=== PATIENT | female | born 1930 | race Caucasian/White ===

== ENCOUNTER 2017-03-11 18:01 | Inpatient (IN) | payer OTHER, MEDICARE ==
[~2017-03-11] VITALS: Ht 152.4 cm; Wt 60.3 kg
[~2017-03-11 18:01] MED LIST: AMLODIPINE-BEN1 EAC3 PO; ASPIRIN EC81 M1 PO; CRESTOR20 M2 PO; FERROUS SULFAT325 M3 PO; GEMFIBROZIL600 M1 PO; LEXAPRO5 M1 PO; LORAZEPAM0.5 M1 PO; MACROBID 100 M100 MG PO; MECLIZINE HCL25 MG PO; METFORMIN HCL1000 M1 PO; MOBIC7.5 M1 PO; PREDNISONE20 M1 PO; TYLENOL WITH C1 EACH PO; VITAMIN D1000 UNIT PO; ZOFRAN4 M2 PO
--- NOTE | 2017-03-11 18:07 | NUR ---
BIBA FROM HOME WITH INCREASING FALLS FROM HER RIGHT LEG GOING OUT ON HER. HAD X-RAYS DONE HERE YESTERDAY FOR SAME. PCP & NEURO IS AWARE AND PATIENT HAS BEEN TOLD THERE IS NOTHING THEY CAN DO FOR HER AT THIS TIME. C/O HAVING THE PINS/NEEDLES SENSATION IN HANDS AND FEET.
--- NOTE | 2017-03-11 18:10 | ED AMS/SEIZURE/WEAK/DIZZY ---
History of Present Illness General Chief Complaint: Fall Stated Complaint: BIBA FALLS Source: patient, family, old records Exam Limitations: no limitations Vital Signs & Intake/Output Vital Signs & Intake/Output Vital Signs Date Time Temp Pulse Resp B/P B/P Pulse O2 O2 Flow FiO2 Mean Ox Delivery Rate 03/12 0230 98.0 75 20 130/60 96 03/12 0049 97.2 69 20 136/63 96 Room Air 03/11 2225 88 18 140/64 96 Room Air 03/11 1809 98 Room Air 03/11 1808 98.2 106 20 140/65 98 Room Air ED Intake and Output 03/12 0000 03/11 1200 Intake Total Output Total Balance Patient 133 lb Weight Weight Reported by Patient Measurement Method Allergies Coded Allergies: No Known Allergies (06/29/16) Triage Note: BIBBoy FROM HOME WITH INCREASING FALLS FROM HER RIGHT LEG GOING OUT ON HER. HAD X-RAYS DONE HERE YESTERDAY FOR SAME. PCP & NEURO IS AWARE AND PATIENT HAS BEEN TOLD THERE IS NOTHING THEY CAN DO FOR HER AT THIS TIME. C/O HAVING THE PINS/NEEDLES SENSATION IN HANDS AND FEET. Triage Nurses Notes Reviewed? yes Onset: Gradual Duration: getting worse Timing: recent history Severity: severe Severity Numbers: 7 HPI: Patient is a 86-year-old female with past medical history diabetes mellitus type 2, hypertension, hyperlipidemia who presents emergency room with concerns of worsening generalized bilateral lower extremity weakness or patient was evaluated by me at [facility] emergency room 1 week ago for concerns of similar lower extremity weakness dizziness and room spinning sensation where patient had unremarkable acute findings and blood work patient had normal steady gait on discharge however since her discharge where patient lives in a private residence at home that she and family are very concerned with patient showing significant decline earner ambulatory status where she in the past 2 days has had nontraumatic falls and today she was unable to get out of bed due to generalized weakness which she was brought in by ambulance. Patient also was evaluated this week by primary care doctor in which x-ray of chest was unremarkable along with urine analysis and culture. Patient is still complaining of increased frequency of urination. Patient however denies any fever chills headache neck pain back pain abdominal pain chest pain shortness of breath cough blurred vision Patient does complain of intermittent bilateral lower extremity paresthesia but denies any lower extremity pain Denies any dysuria hematuria or vaginal bleeding or discharge. Patient denies any pain after the fallS It is also noted through old records the patient about 1 year ago received imaging studies after a fall and had MRI findings concerning of nondisplaced trabecular fracture of the left hip (BJORN GARCIA) Reconcile Medications Acetaminophen With Codeine (Acetaminophen-Cod #3 Tablet) 300 MG-30 MG TABLET 1 TAB PO AD PRN PAIN (Reported) Amlodipine Besylate/Benazepril (Amlodipine-Benazepril 5-10 MG) 1 EACH CAPSULE 1 CAP PO DAILY BP (Reported) Aspirin (Ecotrin*) 81 MG TABLET.DR 1 TAB PO DAILY HEART HEALTH (Reported) Cholecalciferol (Vitamin D3) (Vitamin D) 1,000 UNIT TABLET 3 CAP PO DAILY SUPPLEMENT (Reported) Escitalopram Oxalate (Lexapro) 5 MG TABLET 1 TAB PO DAILY MENTAL HEALTH ( Reported) Gemfibrozil 600 MG TABLET 1 TAB PO BID CHOLESTEROL (Reported) Ibuprofen (Advil) 200 MG TABLET 2 TAB PO PRN PAIN (Reported) Lorazepam 0.5 MG TABLET 0.5 TAB PO QPM SLEEP (Reported) Metformin HCl 1,000 MG TABLET 1 TAB PO DAILY DIABETES (Reported) Rosuvastatin Calcium (Crestor) 20 MG TABLET 1 TAB PO DAILY CHOLESTEROL ( Reported) (AV MINAYA,RICO Gandhi) Past History Travel History Traveled to [place] past 21 day No Medical History Any Pertinent Medical History? 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 No (BJORN GARCIA) Review of Systems Review of Systems Constitutional: Reports: weakness. EENTM: Reports: no symptoms. Respiratory: Reports: no symptoms. Cardiovascular: Reports: no symptoms. GI: Reports: no symptoms. Genitourinary: Reports: no symptoms. Musculoskeletal: Reports: no symptoms. Skin: Reports: no symptoms. Neurological/Psychological: Reports: see HPI, paresthesia. Hematologic/Endocrine: Reports: no symptoms. Immunologic/Allergic: Reports: no symptoms. All Other Systems: Reviewed and Negative (BJORN GARCIA) Physical Exam Physical Exam General Appearance: no apparent distress, alert, comfortable Comments: Well-developed well-nourished person in no acute distress HEENT: Normal EENT exam, extraocular motion intact, no nystagmus. Pupils equally round and reactive to light and accommodation. Nose is atraumatic. External auditory canal and Tympanic membranes clear. Pharynx normal. No swelling or edema. Neck: Supple, no lymphadenopathy, normal range of motion without pain or tenderness Back: Nontender, no CVA tenderness. Cardiovascular: Regular rate and rhythms no murmurs rubs or gallops, normal JVP Respiratory: Chest nontender. No respiratory distress.breath sounds clear to auscultation bilaterally Abdomen: Soft, nontender nondistended, no appreciable organomegaly. Normal bowel sounds. No ascites Extremity: No edema, no calf tenderness to palpation, normal and equal pulses. Bilateral lower extremity dermatomes myotomes DTRs intact Neuro: Alert oriented x3, motor sensory normal, cranial nerves II through XII grossly intact. Skin: No appreciable rash on exposed skin, skin is warm and dry. Psych: Mood and affect is normal, memory and judgment is normal. Core Measures ACS in differential dx? No CVA/TIA Diagnosis: No Severe Sepsis Present: No Septic Shock Present: No (BJORN GARCIA) Progress Differential Diagnosis: arrythmia, anemia, benign positional vertigo, CVA/stroke , dehydration, drug intoxication, encephalitis, electrolyte imbalance, GI bleed, hypoglycemia, hypoxia, intracranial Hem., intracranial mass/tumor, labrynthitis, meningitis, Meniere's disease, migraine JOHNSON, multiple sclerosis, pneumonia, postural hypotension, presyncope, post-traumatic vertigo, sepsis, seizure disorder, subarachnoid Hem., UTI/pyelo, vertebrobasilar insuff Plan of Care: Orders Procedure Date/time Status BASIC ELECTROLYTES PLUS BUN&CR 03/13 0600 Active Consistent Carbohydrate 2 03/12 B Active Vital Signs 03/12 140 Active Teach/Educate 03/12 140 Active Pain Treatment and Response 03/12 140 Active Nutritional Intake, Monitor 03/12 140 Active Isolation 03/12 140 Active Intake & Output 03/12 140 Active Patient Care Conference 03/12 140 Active Activity/Ambulation 03/12 140 Active Code Status 03/12 0103 Active Pathway - chart 03/12 0101 Active PT Evaluate & Treat 03/12 0044 Active Pathway - chart 03/12 0044 Active House Staff 03/12 0044 Active Lab Add-on Test 03/12 UNK Active VTE Mechanical Prophylaxis 03/12 UNK Active Vital Signs 03/12 UNK Complete MISTAKE 03/12 UNK Active Nursing Misc 03/12 UNK Active FingerStick- Glucose 03/12 UNK Active Patient Data 03/11 2332 Active ED Holding Orders 03/11 232 Active Admit to inpatient 03/11 232 Active Vital Signs 03/11 232 Active Code Status 03/11 232 Complete Intake & Output 03/11 2013 Active VITAMIN B12 03/11 2010 Complete COMPREHENSIVE METABOLIC PANEL 03/11 1956 Complete CBC WITHOUT DIFFERENTIAL 03/11 1956 Complete EKG 03/11 1956 Active NIH Stroke Scale 03/11 181 Active Current Medications Sig/Tyrese Start time Last Medication Dose Stop Time Status Admin Gabapentin 100 MG AT BEDTIME 03/12 2200 AC (Neurontin) Lorazepam 0.25 MG QPM 03/12 2200 AC (Ativan) 03/19 2159 Atorvastatin Calcium 20 MG 1700 03/12 1700 AC (Lipitor) Amlodipine Besylate 5 MG DAILY 03/12 1000 AC (Norvasc) Aspirin Buffered 81 MG DAILY 03/12 1000 AC (Ecotrin) Ceftriaxone Sodium 1,000 MG DAILY 03/12 1000 AC (Rocephin) 03/14 1001 Cholecalciferol 1,000 IU DAILY 03/12 1000 AC (Vitamin D) Enoxaparin Sodium 40 MG DAILY 03/12 1000 AC (Lovenox) Escitalopram Oxalate 5 MG DAILY 03/12 1000 AC (Lexapro) Gemfibrozil 600 MG BID 03/12 1000 AC (Lopid 600 MG Tab) Lisinopril 10 MG DAILY 03/12 1000 AC (Prinivil) Polyethylene Glycol 17 GM DAILY 03/12 1000 AC (Miralax) Insulin Aspart 0 TIDAC 03/12 0800 AC (NovoLOG) Senna/Docusate Sodium 1 TAB BID PRN 03/12 0115 AC (Senokot S) Acetaminophen 650 MG Q6P PRN 03/12 0100 AC (Tylenol) Acetaminophen 1,000 MG Q6P PRN 03/12 0100 AC (Ofirmev) Morphine Sulfate 1 MG Q6-PRN PRN 03/12 0100 AC (Morphine) Sodium Chloride 1,000 ML .[id number] 03/12 0045 AC 03/12 (Normal Saline 0.9%) 03/12 1404 0201 Laboratory Tests 03/11/172009: Anion Gap 10, Estimated GFR 53 L, BUN/Creatinine Ratio 27.0 H, Glucose 102 H, Calcium 10.1, Total Bilirubin 0.3, AST 21, ALT 21, Alkaline Phosphatase 122, Total Protein 7.0, Albumin 4.3, Globulin 2.7, Albumin/Globulin Ratio 1.6, Vitamin B12 478, CBC w Diff NO MAN DIFF REQ, RBC 3.67 L, MCV 91.8, MCH 30.4, RDW 14.6 H, MPV 8.4, Gran % 78.4 H, Lymphocytes % 11.7 L, Monocytes % 8.7, Eosinophils % 1.0, Basophils % 0.2, Absolute Granulocytes 9.1 H, Absolute Lymphocytes 1.4, Absolute Monocytes 1.0 H, Absolute Eosinophils 0.1, Absolute Basophils 0, PUBS MCHC 33.2 Patient on initial examination at rest was asymptomatic. Patient has unremarkable physical exam findings Blood work EKG and CT scans were unremarkable for acute process and concerns. Patient was evaluated for ambulation in which she could weight-bear with significant assistance to help patient get up from the bed with nursing staff patient noted to be weightbearing and took 3 steps in the emergency room and felt too weak to continue and was placed back into bedside. No fall had occurred. Patient denied any pain however just felt too weak to walk. Due to recent evaluation in the emergency room with concerns of lower extremity weakness and multiple falls this week patient living at home in a private residence by herself at this time outpatient treatment would be medically harmful due to significant fall risk AND SHE inability to perform active daily living at home Discussed admission with case management who agrees and was patient requires 2 day stay Discussed disposition and plan with family patient who agrees (FRANCES PINA,BJORN) Diagnostic Imaging: Viewed by Me: CT Scan. Radiology Impression: no fracture Initial ED EKG: SINUS RHYTHM NOTED 81 BPM Comments: PATIENT: SHEILA CORONEL PRESENT AGE: 86 PATIENT ACCOUNT NO: [id number] : 32 LOCATION: [facility] ORDERING PHYSICIAN: BJORN PINA SERVICE DATE: 03/11/17 EXAM TYPE: CAT - CT LUMB SPINE W IV CONTRAST EXAMINATION: CT LUMBAR SPINE WITH CONTRAST CLINICAL INFORMATION: Bilateral lower extremity weakness. COMPARISON: Lumbar spine radiograph 04/29/2016. TECHNIQUE: 95 Optiray 320 intravenous contrast. Axial images obtained through the lumbar spine. Coronal and sagittal reformatted images are performed at the CT scanner. DLP: 965.72 mGy-cm. FINDINGS: Multilevel degenerative spondylosis of the spine with disc height narrowing and endplate spurs and facet joint arthrosis. There is a levoscoliosis of the thoracolumbar spine. No fracture. Vertebrae have normal height. No focal bone lesion. No paraspinal soft tissue abnormality. No abnormal enhancing lesion. There is atherosclerotic vascular calcifications of the wall of aorta. The visualized portions of kidneys unremarkable. SPINAL LEVELS: T12-L1: Mild disc height narrowing with endplate spurs of the vertebrae. No central canal stenosis. Neural foramina open. L1-L2: Vacuum disc changes with disc height narrowing. Circumferential bulging of the annulus of the discs but no focal disc protrusion. There is endplate spurs of the vertebrae. No central canal stenosis. Neural foramina open. L2-L3: Mild disc height narrowing vacuum disc changes. No focal disc protrusion. No central canal stenosis. Neural foramina open. L3-L4: Circumferential bulge of the annulus. Ligamentum flavum hypertrophy with degenerative change of facet joints. There is mild to moderate central canal stenosis. Neural foramina open. L4-L5: Grade 1 anterolisthesis of L4 and L5. No spondylolysis. Circumferential bulge of the annular fibers of the disc. No focal disc protrusion. There is marked central canal stenosis. This is due to the disc bulge and ligamentum flavum hypertrophy with marked facet joint arthrosis. There is narrowing of the right and left neural foramina without significant nerve root compression. L5-S1: No focal disc protrusion. No central canal stenosis. Degenerative change of facet joints bilateral. Mild narrowing of neural foramina without nerve root compression. IMPRESSION: Multilevel degenerative spondylosis of the spine. No focal disc protrusion. There is however central canal stenosis at L3-L4 and L4-L5 disc levels. DICTATED BY: CIERA BRUMFIELD MD DATE/TIME DICTATED:03/11/17 PATIENT: SHEILA CORONEL PRESENT AGE: 86 PATIENT ACCOUNT NO: [id number] : 32 LOCATION: [facility] ORDERING PHYSICIAN: BJORN PINA SERVICE DATE: 03/11/17 EXAM TYPE: CAT - CT CERV SPINE W IV CONTRAST EXAMINATION: CT CERVICAL SPINE WITH CONTRAST CLINICAL INFORMATION: Bilateral lower extremity weakness. COMPARISON: None. TECHNIQUE: 95 mL Optiray 320 intravenous contrast. Axial images obtained through the cervical spine. Coronal and sagittal reformatted images are performed at CT scanner. DLP: 283.71 mGy-cm. FINDINGS: No fracture. No focal bone lesion. No paraspinal soft tissue abnormality or abnormal enhancing lesion. There is degenerative spondylosis. Marked cervical disc height narrowing with endplate spurs and irregularity of the endplates seen at C4-C5. Significant narrowing also of the disc at C5-C6 and C6-C7 and C7-T1. Multilevel facet joint arthrosis most significant at upper cervical spine. There is a hypodense thyroid nodule in the right lobe of thyroid measuring 2.7 x 2.2 cm. This can be further assessed with nonemergent thyroid ultrasound. SPINAL LEVELS: C2-C3: No focal disc protrusion. No central canal stenosis. Marked facet joint arthrosis of the left facet. Degenerative spurring at the facet joint mildly narrows the left neural foramina. C3-C4: Narrowing of the cervical disc height. No focal disc protrusion. No central canal stenosis. Marked degenerative change of the facet joint on the right and mild degenerative change of the left. Spurs from the facet joints cause narrowing of the neural foramina bilaterally greater on the right than left. C4-C5: Significant disc height narrowing. No focal disc protrusion. No central canal stenosis. Degenerative change of the facet joints greater on right than left with significant narrowing of the neural foramina bilaterally at this disc level. The neural foraminal narrowing accentuated by posterior spurs and the uncinate process. C5-C6: Disc height narrowing without disc protrusion. No central canal stenosis. Mild degenerative change of facet joints bilateral. Posterior spurs in the uncinate process moderately narrow the neural foramina bilaterally. C6-C7: Cervical disc height narrowing without focal disc protrusion. No central canal stenosis. Mild degenerative change of the facet joints. Posterior uncinate process spurs slightly encroaching into the neural foramina bilaterally. C7-T1: Cervical disc height narrowing with endplate spurs and facet joint arthrosis. No focal disc protrusion. No central canal stenosis. Posterior uncinate process spur narrows the right neural foramina. Left neural foramina remains open. IMPRESSION: 1. Degenerative spondylosis of cervical spine. No central canal stenosis. There is multilevel neural foraminal narrowing however by spurs from the facet joints and the uncinate process of vertebrae. 2. Right thyroid nodule. DICTATED BY: CIERA BRUMFIELD MD DATE/TIME DICTATED:03/11/172147 SENIOR REVENUE ACCOUNTANT:TRISTAN DATE/TIME TRANSCRIBED:03/11/172147 (BJORN GARCIA) Departure Departure Disposition: HOME OR SELF CARE Condition: Stable Clinical Impression Primary Impression: Multifactorial gait disorder Secondary Impressions: Fall, Inability to perform activities of daily living, Weakness Referrals: JAMIE NARVAEZ MD (PCP/Family) Departure Forms: Customer Survey General Discharge Information Admission Note Spoke With: RAQUEL LOPEZ MD Documentation of Exam: Documentation of any treatments & extenuating circumstances including Concerns Regarding Discharge (functional status, medication knowledge or non-compliance, living conditions, etc.) that warrant an admission rather than observation: [ Discussed admission with Dr. OROURKE who agrees with general medicine admission for concerns of multifactorial gait abnormalities and fall risk, patient requires repeat labs, physical therapy consultation, case management consultation, nutritional consultation and possible placement to short-term rehabilitation. Outpatient treatment at this time due to multiple recent fall, fall risk concern, inability to perform ADL at home and patient living in a private residence by herself would be medically harmful] (BJORN GARCIA) PA/SUMO WRESTLER Co-Sign Statement Statement: ED Attending supervision documentation- [] I saw and evaluated the patient. I have also reviewed all the pertinent lab results and diagnostic results. I agree with the findings and the plan of care as documented in the PA's/SUMO WRESTLER's documentation. [X] I have reviewed the ED Record and agree with the PA's/SUMO WRESTLER's documentation. [] Additions or exceptions (if any) to the PAs/SUMO WRESTLER's note and plan are summarized below: [] (AV MINAYA,RICO Gandhi)
--- NOTE | 2017-03-11 20:14 | NUR ---
KANDIS CRUZ SENT TO LAB
[2017-03-11 20:33] LABS: ABSOLUTE BASOPHIL COUNT 0 /CUMM (0.0-0.2); ABSOLUTE EOSINOPHIL COUNT 0.1 /CUMM (0.0-0.7); ABSOLUTE GRANULOCYTE CT 9.1 /CUMM (1.4-6.5); ABSOLUTE LYMPH COUNT 1.4 /CUMM (1.2-3.4); BASOPHIL % 0.2 % (0.0-2.0); GRANULOCYTE % 78.4 % (42.2-75.2); HEMATOCRIT 33.7 % (37-47); MEAN CORPUSCULAR HGB 30.4 PG (27.0-31.0); MEAN CORPUSCULAR HGB CONC 33.2 G/DL (33.0-37.0); MEAN CORPUSCULAR VOLUME 91.8 FL (81.0-99.0); MEAN PLATELET VOLUME 8.4 FL (7.4-10.4); PLATELET COUNT 256 /CUMM (130-400); RBC DISTRIBUTION WIDTH 14.6 % (11.5-14.5); RED BLOOD CELL CT 3.67 /CUMM (4.20-5.40); WHITE BLOOD CELL COUNT 11.6 /CUMM (4.8-10.8)
[2017-03-11] MEDS ORDERED: SULFAMETHOXAZO1 EAC1 PO (20:50)
[2017-03-11] MEDS ORDERED: ACETAMINOPHEN-1 EAC3 PO (20:50)
[2017-03-11] MEDS ORDERED: ADVIL200 M2 PO (20:51)
--- NOTE | 2017-03-11 20:59 | NUR ---
AWAITING CT SCAN
--- NOTE | 2017-03-11 22:20 | CT SCAN REPORT ---
EXAMINATION: CT CERVICAL SPINE WITH CONTRAST CLINICAL INFORMATION: Bilateral lower extremity weakness. COMPARISON: None. TECHNIQUE: 95 mL Optiray 320 intravenous contrast. Axial images obtained through the cervical spine. Coronal and sagittal reformatted images are performed at CT scanner. DLP: 283.71 mGy-cm. FINDINGS: No fracture. No focal bone lesion. No paraspinal soft tissue abnormality or abnormal enhancing lesion. There is degenerative spondylosis. Marked cervical disc height narrowing with endplate spurs and irregularity of the endplates seen at C4-C5. Significant narrowing also of the disc at C5-C6 and C6-C7 and C7-T1. Multilevel facet joint arthrosis most significant at upper cervical spine. There is a hypodense thyroid nodule in the right lobe of thyroid measuring 2.7 x 2.2 cm. This can be further assessed with nonemergent thyroid ultrasound. SPINAL LEVELS: C2-C3: No focal disc protrusion. No central canal stenosis. Marked facet joint arthrosis of the left facet. Degenerative spurring at the facet joint mildly narrows the left neural foramina. C3-C4: Narrowing of the cervical disc height. No focal disc protrusion. No central canal stenosis. Marked degenerative change of the facet joint on the right and mild degenerative change of the left. Spurs from the facet joints cause narrowing of the neural foramina bilaterally greater on the right than left. C4-C5: Significant disc height narrowing. No focal disc protrusion. No central canal stenosis. Degenerative change of the facet joints greater on right than left with significant narrowing of the neural foramina bilaterally at this disc level. The neural foraminal narrowing accentuated by posterior spurs and the uncinate process. C5-C6: Disc height narrowing without disc protrusion. No central canal stenosis. Mild degenerative change of facet joints bilateral. Posterior spurs in the uncinate process moderately narrow the neural foramina bilaterally. C6-C7: Cervical disc height narrowing without focal disc protrusion. No central canal stenosis. Mild degenerative change of the facet joints. Posterior uncinate process spurs slightly encroaching into the neural foramina bilaterally. C7-T1: Cervical disc height narrowing with endplate spurs and facet joint arthrosis. No focal disc protrusion. No central canal stenosis. Posterior uncinate process spur narrows the right neural foramina. Left neural foramina remains open. IMPRESSION: 1. Degenerative spondylosis of cervical spine. No central canal stenosis. There is multilevel neural foraminal narrowing however by spurs from the facet joints and the uncinate process of vertebrae. 2. Right thyroid nodule.
--- NOTE | 2017-03-11 22:34 | CT SCAN REPORT ---
EXAMINATION: CT LUMBAR SPINE WITH CONTRAST CLINICAL INFORMATION: Bilateral lower extremity weakness. COMPARISON: Lumbar spine radiograph 04/29/2016. TECHNIQUE: 95 Optiray 320 intravenous contrast. Axial images obtained through the lumbar spine. Coronal and sagittal reformatted images are performed at the CT scanner. DLP: 965.72 mGy-cm. FINDINGS: Multilevel degenerative spondylosis of the spine with disc height narrowing and endplate spurs and facet joint arthrosis. There is a levoscoliosis of the thoracolumbar spine. No fracture. Vertebrae have normal height. No focal bone lesion. No paraspinal soft tissue abnormality. No abnormal enhancing lesion. There is atherosclerotic vascular calcifications of the wall of aorta. The visualized portions of kidneys unremarkable. SPINAL LEVELS: T12-L1: Mild disc height narrowing with endplate spurs of the vertebrae. No central canal stenosis. Neural foramina open. L1-L2: Vacuum disc changes with disc height narrowing. Circumferential bulging of the annulus of the discs but no focal disc protrusion. There is endplate spurs of the vertebrae. No central canal stenosis. Neural foramina open. L2-L3: Mild disc height narrowing vacuum disc changes. No focal disc protrusion. No central canal stenosis. Neural foramina open. L3-L4: Circumferential bulge of the annulus. Ligamentum flavum hypertrophy with degenerative change of facet joints. There is mild to moderate central canal stenosis. Neural foramina open. L4-L5: Grade 1 anterolisthesis of L4 and L5. No spondylolysis. Circumferential bulge of the annular fibers of the disc. No focal disc protrusion. There is marked central canal stenosis. This is due to the disc bulge and ligamentum flavum hypertrophy with marked facet joint arthrosis. There is narrowing of the right and left neural foramina without significant nerve root compression. L5-S1: No focal disc protrusion. No central canal stenosis. Degenerative change of facet joints bilateral. Mild narrowing of neural foramina without nerve root compression. IMPRESSION: Multilevel degenerative spondylosis of the spine. No focal disc protrusion. There is however central canal stenosis at L3-L4 and L4-L5 disc levels.
--- NOTE | 2017-03-11 22:52 | NUR ---
ASSISTED PATIENT OOB AND HAD HER WALK W/ WALKER. PATIENT WAS ABLE TO WALK FROM BED TO DOOR AND HAD NO OBVIOUS EVIDENCE OF FALLING. PATIENT AMBULATED BACK TO BED W/ WALKER AND ASSISTED BACK TO BED. PATIENT REFUSING TO THINK ABOUT DOING PT IN ANY ENVIRONMENT BESIDES HER HOME BUT AT THE SAME TIME SHE WANTS TO KNOW WHEN SHE WILL BE ADMITTED UPSTAIRS. PATIENT AND DAUGHTER REQUESTING THAT PATIENT HAVE AN ADULT DIAPER SO THAT SHE DOESN'T HAVE TO KEEP CALLING FOR THE BP. HAVE EXPLAINED TO BOTH PERSONS THAT [facility] DOES NOT USE DIAPERS D/T INCREASED RISK OF SKIN BREAKDOWN. NOW PATIENT IS REQUESTING A FC. CAUTI IS EXPLAINED TO PATIENT AND FAMILY.
--- NOTE | 2017-03-11 23:34 | History & Physical ---
See Addendum HARRY MONTEIRO MD 03/11/17 6602: General Information and HPI MD Statement: I have seen and personally examined SHEILA CORONEL and documented this H&P. The patient is a 86 year old F who presented with a patient stated chief complaint of [mechanical fall]. Source of Information: patient, family, old records Exam Limitations: no limitations History of Present Illness: Pt is an 86 yo caucasion F presenting to the ED after 2 unwitnessed falls today. She has a pmh significant for HTN, HLD, DM and osteoporosis. She usually walks with a walker, today (03/11/17) she attempted walk across her house to get her mail without her walker, she felt her R knee give out, and fell. She did not hit her head, or suffer any significant injury, she denies LOC, chest pain, SOB, palpitations, lightheadedness, or diziness at this time, and was able to pull herself back to standing. Later in the afternoon she was using her walker to walk to the bathroom and her leg gave out again she did not hit her head, or suffer any significant injury, she denies LOC, chest pain, SOB, palpitations, lightheadedness, or diziness at this time. She was too weak to pull herself up after this fall, and waited on the floor from 3PM until her daughter came to check on her at 5 PM. The pt lives in a private residence by herself, has 5 children, and they always check in on her at noon and 5pm. The pt currently any pain as a result of the fall. She has been experiencing urinary frequency for "a long time" reporting that she feels the urge to void every 15 minutes, but claims her doctor says that there is nothing aliza can be done about it. She has also had dysuria for the past few days, and was started on Bactrim by her PCP 2 days ago. The pt also endorses a tingling sensation in her hands and feet , but is not currently on any medication for this issue, and has discussed it with her PCP. Allergies/Medications Allergies: Coded Allergies: No Known Allergies (06/29/16) Home Med list Acetaminophen With Codeine (Acetaminophen-Cod #3 Tablet) 300 MG-30 MG TABLET 1 TAB PO AD PRN PAIN (Reported) Amlodipine Besylate/Benazepril (Amlodipine-Benazepril 5-10 MG) 1 EACH CAPSULE 1 CAP PO DAILY BP (Reported) Aspirin (Ecotrin*) 81 MG TABLET.DR 1 TAB PO DAILY HEART HEALTH (Reported) Cholecalciferol (Vitamin D3) (Vitamin D) 1,000 UNIT TABLET 3 CAP PO DAILY SUPPLEMENT (Reported) Escitalopram Oxalate (Lexapro) 5 MG TABLET 1 TAB PO DAILY MENTAL HEALTH ( Reported) Gemfibrozil 600 MG TABLET 1 TAB PO BID CHOLESTEROL (Reported) Ibuprofen (Advil) 200 MG TABLET 2 TAB PO PRN PAIN (Reported) Lorazepam 0.5 MG TABLET 0.5 TAB PO QPM SLEEP (Reported) Metformin HCl 1,000 MG TABLET 1 TAB PO DAILY DIABETES (Reported) Rosuvastatin Calcium (Crestor) 20 MG TABLET 1 TAB PO DAILY CHOLESTEROL ( Reported) Past History Travel History Traveled to [place] past 21 day No Medical History Neurological: NONE EENT: NONE Cardiovascular: hypertension, hyperlipidemia, HIGH CHOLESTEROL Respiratory: NONE Gastrointestinal: NONE Hepatic: NONE Renal: NONE Musculoskeletal: OSTEOPOROSIS HIP FX Psychiatric: anxiety, depression Endocrine: NIDDM Blood Disorders: NONE Cancer(s): NONE 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 Home Who Do You Live With? self Services at Home: None Primary Language: Belarusian Smoking Status: Never Smoked ETOH Use: denies use Illicit Drug Use: denies illicit drug use Living Will? states that her children know her wishes Review of Systems Review of Systems Constitutional: Reports: weakness. Denies: chills, fever. EENTM: Denies: blurred vision, visual changes, eye pain, hearing changes (uses hearing aid at baseline). Cardiovascular: Denies: chest pain, palpitations, syncope. Respiratory: Denies: cough, short of breath. GI: Denies: diarrhea, melena, bloody stool, changes in stool. Genitourinary: Reports: dysuria, frequency. Denies: hematuria. Musculoskeletal: Denies: back pain, muscle pain. Exam & Diagnostic Data Last 24 Hrs of Vital Signs/I&O Vital Signs Date Time Temp Pulse Resp B/P B/P Pulse O2 O2 Flow FiO2 Mean Ox Delivery Rate 03/12 0230 98.0 75 20 130/60 96 03/12 0049 97.2 69 20 136/63 96 Room Air 03/11 2225 88 18 140/64 96 Room Air 03/11 1809 98 Room Air 03/11 1808 98.2 106 20 140/65 98 Room Air Intake & Output 03/12 0800 03/12 0000 03/11 1600 Intake Total Output Total Balance Patient 133 lb Weight Weight Reported by Patient Measurement Method Physical Exam General Appearance Alert, Oriented X3, Cooperative, No Acute Distress Skin No Rashes, No Breakdown, No Significant Lesion Skin Temp/Moisture Exam: Warm/Dry Sepsis Skin Exam (color): Normal for Ethnicity HEENT Atraumatic, PERRLA, EOMI, Mucous Membr. moist/pink Neck Supple, No LAD Cardiovascular Regular Rate, Normal S1, Normal S2, No Murmurs Lungs Clear to Auscultation, Normal Air Movement Abdomen Normal Bowel Sounds, Soft, No Tenderness, No Hepatospenomegaly, No Masses Neurological Normal Speech, Strength at 5/5 X4 Ext, Sensation Intact, Cranial Nerves 3-12 NL Extremities No Clubbing, No Edema, Normal Pulses, several ecchymoses on the forearms b/l which pt claims she got while pulling herslef up from the initial fall, abrasion on the R elbow Vascular Normal Pulses, Pulses Symmetrical Sepsis Peripheral Pulse Location: Dorsalis Pedis Sepsis Peripheral Pulse Exam: Weak Sepsis Cap Refill Exam: <2 Sec Diagnostic Data Other Results CT LUMBAR SPINE WITH CONTRAST IMPRESSION: Multilevel degenerative spondylosis of the spine. No focal disc protrusion. There is however central canal stenosis at L3-L4 and L4-L5 disc levels. CT CERVICAL SPINE WITH CONTRAST IMPRESSION: 1. Degenerative spondylosis of cervical spine. No central canal stenosis. There is multilevel neural foraminal narrowing however by spurs from the facet joints and the uncinate process of vertebrae. 2. Right thyroid nodule. Assessment/Plan Assessment: Pt is an 86 yo caucasion F presenting to the ED after 2 unwitnessed falls today. She has a pmh significant for HTN, HLD, DM, and osteoporosis. She did not hit her head, or suffer any significant injury, she denies LOC, chest pain, SOB, palpitations, lightheadedness, or diziness at the time of the falls. She has also been experiencing urinary frequency for "a long time," but claims her doctor says that there is nothing aliza can be done about it. She has also had dysuria for the past few days, and was started on Bactrim by her PCP 2 days ago. The pt also endorses a tingling sensation in her hands and feet, but is not currently on any medication for this issue, and has discussed it with her PCP. #Mechanical fall - admit to gen med - pt/ot consult in AM - pain managament - fu orthrostatic vitals #UTI - IV ceftriaxone 1g daily - fu post void bladder scan - fu urine cultures # history of htn - c/w home medications (lisinopril 10mg daily, amlodipine 5 mg daily) # histroy of DM - Insulin sliding scale # histroy of anxiety - c/w Ativan 0.25 mg prn #history of HLD - c/w Lipitor 20mg #dvt prophylaxis - lovenox # code status - full code As Ranked By This Provider Problem List: 1. Fall 2. UTI (urinary tract infection) Core Measures/Miscellaneous Acute Coronary Syndrome ACS Diagnosis: No Cerebrovascular Accident CVA/TIA Diagnosis: No Congestive Heart Failure CHF Diagnosis: No VTE (View Protocol) VTE Risk Factors: Age > 40 No [facility] VTE prophylaxis d/t: No contraindications No VTE Pharm Prophylaxis d/t: No contraindications VTE Diagnosis: No VTE Type: NONE VTE Confirmed by (Test): NONE Sepsis (View Protocol) Severe Sepsis Present: No Septic Shock Septic Shock Present: No Miscellaneous Documentation Attending Case Discussed With: RAQUEL LOPEZ MD Primary Care Physician: JAMIE NARVAEZ MD Patient sees these Specialists NA Level of Patient Care: General Medicine GRANT RAJAN MD 03/12/17 0416: Resident Review Statement Resident Statement: examined this patient, discussed with international sales representative, agreed with international sales representative, discussed with family, reviewed EMR data (avail), discussed with nursing , reviewed images Other Findings: 82-year-old female with past medical history of diabetes mellitus, possible neuropathy, hypertension, hyperlipidemia, osteoporosis, was brought in by ambulance after sustaining a mechanical fall injury earlier today. She apparently missed/slipped while trying to walk with a walker (lost control) and fell down, hurting right side of her chest/ribs. No chest pain/dizziness/ palpitation,shortness of breath/"blacking out" or other symptoms before, during, or after the event. She clearly remembers the whole event. However, the fall was unwitnessed and she was attended by her daughter after more than 2 hours of the incident. She tried walking afterwards, but was clearly below her baseline according to her daughter. Of note, she lives alone in her house, and carries out her activities of daily living by herself otherwise. Her daughters visit her at least twice daily who live nearby. She mentions of right-sided chest pain ( points to lateral area), denies any head strike, loss of consciousness, incontinence during or after the event. She mentioned of pins and needle sensation over b/l hands and feet. Of note, patient has been having urinary frequency/urge (almost every 15 min) since a long time, but started having sensation of burning micturition for which she was prescribed Bactrim by her primary care physician and had taken only 1 tablet so far. No fever/chills/ abdominal pain/changes in bowel habit. Her vitals were stable in the ED, notable only for slightly high BP at 140/65 and tachycardic at 106, and she is alert, oriented x3, cooperative, hard of hearing. Her CBC and BEP are near or very close to normal limits. She underwent a CAT scan of her cervical spine which shows multilevel neural foraminal narrowing, right thyroid nodule; CAT scan of spine showing multilevel degenerative spondylosis, central canal stenosis at L3-L4, and L4-L5 disc levels. She received IV Toradol which seemed to have taken care off the pain. She is currently being admitted in the general medical floor for management of following issues: #Unwitnessed fall injury, likely mechanical Patient gives a clear account of for mechanical fall, and with the negative history, it is less likely to be any other cause. Her EKG done in the emergency department shows sinus rhythm at rate 81, and normal intervals, no ST-T changes. The patient appears to review her baseline, and lives alone, and is still at fall risk given the history of diabetes and likely neuropathy. * Admit and general medical floor * Regular vitals monitoring * Watch for mental status changes * Orthostatic vitals requested, need to follow up * Adequate analgesia * Physical therapy consultation, might require STR * Explored causes of fall for example B12 levels, assess for diabetic neuropathy * Gentle hydration at 75 per hour #? Urinary tract infection Patient was symptomatic, although her WBC count was not impressive in urine, thus was started on Bactrim by her PCP. Patient continues to have urinary urgency every 15 minutes or so, cause of which has not been explored so far apparently. * BladderScan to determine post void residual volume * Start patient on IV ceftriaxone for 3 days * Follow-up urine culture that was sent in her prior visit, preliminary report after 1 day does not show any growth #Diabetes mellitus Patient's oral antihyperglycemic drugs will be kept on hold, will start on low- dose insulin sliding scale with fingerstick glucose testing 3 times a day before meals and at bedtime. #Will continue rest of her home medications of amlodipine 5 mg, benazepril 10 mg has been converted to lisinopril 10 mg, vitamin D3, Lexapro 5 mg, gemfibrozil 600 mg twice a day, lorazepam 0.25 mg for sleep, rosuvastatin 20 mg have been converted to atorvastatin 20 mg. Of note, patient seems to be on long-term lorazepam for sleep, thus would not be safe to stop her daily dose of lorazepam, even though it is low-dose. This needs to be readdressed, given that her sleep could be possibly managed with other medications such as melatonin, Rozerem, which does not have any withdrawal potential if stopped. #Diet: Consistent carbohydrate diet #DVT prophylaxis: Lovenox SQ #Adequate pain management: Pain management path pain utilized, and bowel regimen has been ordered as needed #CODE STATUS: Full code RAQUEL LOPEZ 03/12/17 0547: Attending MD Review Statement Attending Statement Attending MD Statement: examined this patient, discuss w/resident/PA/TRAIN ATTENDANT, agreed w/resident/PA/TRAIN ATTENDANT, reviewed EMR data (avail), reviewed images, amended to note Attending Assessment/Plan: CC: fall PMH: DM, HTN, HLD, osteoporosis, deafness, neuropathy, depression Patient had 2 falls today at home. Both appears to be accidental. Patient gets on and off dizziness and spinning sensation but today she did not have any such feeling before the fall. First time she fell down and couldn't get up by herself. But second time she fell down again when her walker slid and she fell on the floor, could not get up from the floor felt very weak and lethargic, she laid there for 2 hours still her daughter came and helped her up, so they brought her in ER. Patient does not have any specific pain in any joints or extremities or back. She has chronic urinary frequency and urgency and has to wake up several times in the night for urination, some of those occasions patient feels dizzy. Recently she had been getting burning in urination, so was started on Bactrim by PCP since yesterday. She has tingling numbness in toes and fingers. No loss of consciousness, head trauma, palpitations, chest pain, seizure-like activity before or after the fall. Vitals: Afebrile, pulse in 80s, RR 20, blood pressure 140/65, saturating well on room air. On exam: A O 3, cooperative, no acute distress, hard of hearing, neck supple, JVD normal, no lymphadenopathy, mucosa moist, no focal neurological deficit, no dependent edema, no obvious skin rashes or inflammation CVS: S1-S2, RRR. RS: Clear to auscultate bilaterally. Abdomen: Soft, NT, ND, bowel sounds present. Labs: WBC 11.6, hemoglobin 11.2, hematocrit 33.7, platelets 256, neutrophils 78% , sodium 139, potassium 5.1, chloride 109, bicarbonate 20, BUN 27, creatinine 1.0, anion gap 10, glucose 102, calcium 10.1, LFT unremarkable CT lumbar spine, cervical spine: 1. Multilevel degenerative spondylosis of the spine. No focal disc protrusion. There is however central canal stenosis at L3-L4 and L4-L5 disc levels. 2. 1. Degenerative spondylosis of cervical spine. No central canal stenosis. There is multilevel neural foraminal narrowing however by spurs from the facet joints and the uncinate process of vertebrae. 3. Right thyroid nodule. A and P 86-year-old female with past medical history diabetes, ashen, HLD, osteoporosis, ? Diabetic neuropathy, urinary frequency presented in ER for 2 falls today. Both the false appear mechanical, patient could not get up after second fall , So was brought in ER by family through EMS for further evaluation. Patient has on and off dizziness but denied any dizziness before the fall, no palpitation, no chest pain. She was feeling generalized weak. Patient was evaluated by CT scan of lumbar spine and cervical spine she did not show any acute changes. Patient was also recently started on Bactrim for dysuria, patient has baseline increased frequency of urination and urgency. Patient lives alone, appears deconditioned, will benefit from physical therapy and short-term rehabilitation. + Fall + UTI + History of DM, HTN, HLD, osteoporosis, deafness, neuropathy, depression - Admit to general medicine - Orthostatic vitals - Check vitamin B12 - Hold metformin, continue sliding scale insulin - Continue IV ceftriaxone - Follow urine cultures - Post void bladder scan -Start gabapentin 100 mg by mouth at bedtime tomorrow, he'll reevaluate for symptomatic relief, and discussed with her regarding gabapentin for neuropathy : tingling numbness in toes and fingers. - PT evaluation - Evaluate for short-term rehabilitation - Continue rest of her medications - Check CPK - Obtain x-ray thoracic spine in am - DVT prophylaxis - Adequate pain control
--- NOTE | 2017-03-12 00:12 | NUR ---
ASSUMED PRIMARY CARE, PT CURRENTLY ASLEEP. DAUGHTER AT BEDSIDE, AWARE BED IS ASSIGNED.
--- NOTE | 2017-03-12 00:15 | NUR ---
PT BED ASIGNMENT 205-1
--- NOTE | 2017-03-12 00:31 | NUR ---
FLOOR TO CALL WHEN READY.
--- NOTE | 2017-03-12 00:48 | NUR ---
HOUSESTAFF AT BEDSIDE, VOIDED 100CCS ON BEDPAN
--- NOTE | 2017-03-12 01:01 | NUR ---
REPORT GIVEN TO EMILIE, WILL SEE IF SOMEONE CAN HELP TO TRANSPORT.
--- NOTE | 2017-03-12 01:04 | NUR ---
BRUCE AREA BUTOCKS FREE OF OPEN AREAS SL RASH LIKE PRICKLY HEAT TO RT GROIN.
[2017-03-12 02:30] VITALS: BP 130/60
--- NOTE | 2017-03-12 03:59 | NUR ---
PATIENT REFUSED ORTHOSTATIC BP. PT STATED "SHE IS TOO TIRED AND SHE WANTS TO GO TO BED" THIS WAS A LATE ADMISSION. MD HARRY MENDOZA WAS MADE AWARE AND STATED IT WAS OK TO WAIT BUT TO REPORT IT TO THE NEXT SHIFT.
--- NOTE | 2017-03-12 05:48 | Admission Certification ---
Admission Certification Certification Statement - As attending physician, I certify that at the time of - admission, based on clinical presentation, severity of - symptoms, need for further diagnostic testing and - therapeutic interventions, and risk of adverse outcomes - without in-hospital treatment, in my clinical assessment, - this patient requires an acute hospital stay for a minimum - of two nights or longer. I have also considered psychsocial - factors such as support system, advanced age, financial - issues, cognitive issues, and failed out-patient treatments, - past re-admission history, safety of patient, and lack of - compliance as applicable. Specific rationale supporting this admission is: fall
[2017-03-12 07:07] VITALS: BP 118/52
--- NOTE | 2017-03-12 09:02 | PN- Housestaff ---
Subjective Follow-up For: Fall Subjective: I seen and examined the patient. The patient was sitting comfortably in the bed and having breakfast. She does not complain of any pain right now. She complains of increase urgency.She denies any overnight acute events. There is no complaint of fever or chest pain palpitations or shortness of breath. Review of Systems Constitutional: Denies: chills, diaphoresis, fever. Cardiovascular: Denies: chest pain. Respiratory: Denies: short of breath. Gastrointestinal: Denies: diarrhea, distention, bowel incontinence. Genitourinary: Reports: dysuria, urgency. Objective Last 24 Hrs of Vital Signs/I&O Vital Signs Date Time Temp Pulse Resp B/P B/P Pulse O2 O2 Flow FiO2 Mean Ox Delivery Rate 03/12 1219 73 128/62 03/12 1219 73 128/62 03/12 0707 99.1 95 20 118/52 94 03/12 0230 98.0 75 20 130/60 96 03/12 0049 97.2 69 20 136/63 96 Room Air 03/11 2225 88 18 140/64 96 Room Air 03/11 1809 98 Room Air 03/11 1808 98.2 106 20 140/65 98 Room Air Intake & Output 03/12 1600 03/12 0800 03/12 0000 Intake Total 700 Output Total Balance 700 Intake, IV 700 Patient 133 lb 133 lb Weight Weight Reported by Patient Reported by Patient Measurement Method Physical Exam General Appearance: Alert, Oriented X3, Cooperative, No Acute Distress Skin: No Rashes, several echymosis b/l arms and r elbow abrassion HEENT: Pale Cardiovascular: Normal S1, Normal S2, No Murmurs Lungs: Clear to Auscultation, Normal Air Movement Abdomen: Normal Bowel Sounds, Soft, No Tenderness Neurological: Normal Speech Current Medications: Current Medications Sig/Tyrese Start time Last Medication Dose Route Stop Time Status Admin Acetaminophen 650 MG Q6P PRN 03/12 0100 AC PO Acetaminophen 1,000 MG Q6P PRN 03/12 0100 AC IV Amlodipine Besylate 5 MG DAILY 03/12 1000 AC 03/12 PO 1219 Aspirin Buffered 81 MG DAILY 03/12 1000 AC 03/12 PO 1220 Atorvastatin Calcium 20 MG 1700 03/12 1700 AC PO Ceftriaxone Sodium 1,000 MG DAILY 03/12 1000 AC 03/12 IV 07/29 1001 1220 Cholecalciferol 1,000 IU DAILY 03/12 1000 AC 03/12 PO 1219 Enoxaparin Sodium 40 MG DAILY 03/12 1000 AC 03/12 SC 1220 Escitalopram Oxalate 5 MG DAILY 03/12 1000 AC 03/12 PO 1220 Gabapentin 100 MG AT BEDTIME 03/12 2200 AC PO Gemfibrozil 600 MG BID 03/12 1000 AC 03/12 PO 1220 Insulin Aspart 0 TIDAC 03/12 0800 AC 03/12 SC 1356 Lisinopril 10 MG DAILY 03/12 1000 AC 03/12 PO 1219 Lorazepam 0.25 MG QPM 03/12 2200 AC PO 03/19 2159 Morphine Sulfate 1 MG Q6-PRN PRN 03/12 0100 AC IV Polyethylene Glycol 17 GM DAILY 03/12 1000 AC 03/12 PO 1220 Senna/Docusate Sodium 1 TAB BID PRN 03/12 0115 AC PO Sodium Chloride 1,000 ML .[id number] 03/12 0045 DC 03/12 IV 03/12 1404 0201 Last 24 Hrs of Lab/Winston Results Last 24 Hrs of Labs/Mics: Laboratory Tests 03/12/17 1040: Anion Gap 12, Estimated GFR 47 L, BUN/Creatinine Ratio 20.0, Creatine Kinase 79 , Vitamin B12 539, CBC w Diff NO MAN DIFF REQ, RBC 3.66 L, MCV 92.4, MCH 31.0, RDW 14.3, MPV 8.7, Gran % 74.4, Lymphocytes % 13.0 L, Monocytes % 10.3 H, Eosinophils % 1.9, Basophils % 0.4, Absolute Granulocytes 6.8 H, Absolute Lymphocytes 1.2, Absolute Monocytes 0.9 H, Absolute Eosinophils 0.2, Absolute Basophils 0, PUBS MCHC 33.5 03/11/17 2010: Anion Gap 10, Estimated GFR 53 L, BUN/Creatinine Ratio 27.0 H, Glucose 102 H, Calcium 10.1, Total Bilirubin 0.3, AST 21, ALT 21, Alkaline Phosphatase 122, Total Protein 7.0, Albumin 4.3, Globulin 2.7, Albumin/Globulin Ratio 1.6, Vitamin B12 478, CBC w Diff NO MAN DIFF REQ, RBC 3.67 L, MCV 91.8, MCH 30.4, RDW 14.6 H, MPV 8.4, Gran % 78.4 H, Lymphocytes % 11.7 L, Monocytes % 8.7, Eosinophils % 1.0, Basophils % 0.2, Absolute Granulocytes 9.1 H, Absolute Lymphocytes 1.4, Absolute Monocytes 1.0 H, Absolute Eosinophils 0.1, Absolute Basophils 0, PUBS MCHC 33.2 Microbiology 03/12 0934 URINE ROUT: Urine Culture - COLB Assessment/Plan Assessment: Pt is an 86 yo caucasion F presenting to the ED after 2 unwitnessed falls today. She has a pmh significant for HTN, HLD, DM, and osteoporosis. She did not hit her head, or suffer any significant injury, she denies LOC, chest pain, SOB, palpitations, lightheadedness, or diziness at the time of the falls. ED workup Vitals on admission 98.2, 106, 20, 140/65, 98 Her CBC and BEP are near or very close to normal limits. CAT scan of her cervical spine which shows multilevel neural foraminal narrowing , right thyroid nodule; CAT scan of spine showing multilevel degenerative spondylosis, central canal stenosis at L3-L4, and L4-L5 disc levels. Plan: Unwitnessed fall injury, likely mechanical Patient gives a clear account of for mechanical fall, and with the negative history, it is less likely to be any other cause. Her EKG done in the emergency department shows sinus rhythm at rate 81, and normal intervals, no ST-T changes. The patient appears to review her baseline, and lives alone, and is still at fall risk given the history of diabetes and likely neuropathy. * Xray spine- Osteopenia with multiple mild compression deformities in the lower thoracic spine, unchanged from 03/10/2017 and new from 2005 and 2016. Multilevel degenerative disc disease and scoliosis. * Orthostatic vitals WNR * Adequate analgesia Tylenol 650 by mouth every 6 for mild pain Tylenol 1000 IV every 6 for moderate pain and morphine 1 MG every 6 for severe pain * B12 539 and CPK 79 WNR * PT Urinary tract infection Patient was symptomatic, although her WBC count was not impressive and was started on Bactrim by her PCP. Patient continues to have urinary urgency every 15 minutes or so, cause of which has not been explored so far apparently. * BladderScan to determine post void residual volume * IV ceftriaxone for 3 days * Follow-up urine culture that was sent in her prior visit, preliminary report after 1 day does not show any growth Thyroid nodule Cervical spine CT shows thyroid nodule can be worked up as an outpatient. * Outpatient follow-up Hypertension * Continue lisinopril 10 mg daily * Continue amlodipine 5 mg daily Diabetes mellitus * Accu-Cheks * Insulin sliding Scale Anxiety * Condition Ativan 0.25 when necessary Hyperlipidemia * Continue Lipitor 20mg Problem List: 1. UTI (urinary tract infection) 2. Fall Pain Ratin Pain Location: back Pain Goal: Pain 4 or less Pain Plan: Tylenol 650 every 6 Tylenol 100 MG every 6 Morphine 1 mg every 6 Tomorrow's Labs & Rationales: cbc bep DVT/Prophylaxis: lovenox
--- NOTE | 2017-03-12 11:49 | RADIOLOGY REPORT ---
EXAMINATION: XR THORACIC SPINE CLINICAL INFORMATION: Fall. Evaluate for fracture. COMPARISON: Chest x-ray dated 03/10/2017. Lumbar spine films dated 04/29/2016 and 12/30/2005. TECHNIQUE: 2 views of the thoracic spine were obtained on 3 images. FINDINGS: Diffuse osteopenia. There is loss in height of several of the lower thoracic vertebral bodies, unchanged from the recent chest x-ray and new compared to 2015 and 2005. Mild S-shaped thoracic scoliosis. Multilevel mild degenerative disc disease with disc space narrowing, vertebral endplate sclerosis and spurring, most prominent in the mid and lower thoracic spine. Findings are progressive when compared to 2005. No paraspinal soft tissue changes as seen. Calcification of the thoracic aorta is noted. IMPRESSION: Osteopenia with multiple mild compression deformities in the lower thoracic spine, unchanged from 03/10/2017 and new from 2005 and 2015. 2. Multilevel degenerative disc disease and scoliosis.
[2017-03-12 11:58] LABS: ABSOLUTE BASOPHIL COUNT 0 /CUMM (0.0-0.2); ABSOLUTE EOSINOPHIL COUNT 0.2 /CUMM (0.0-0.7); ABSOLUTE GRANULOCYTE CT 6.8 /CUMM (1.4-6.5); ABSOLUTE LYMPH COUNT 1.2 /CUMM (1.2-3.4); ABSOLUTE MONOCYTE COUNT 0.9 /CUMM (0.10-0.60); BASOPHIL % 0.4 % (0.0-2.0); EOSINOPHIL % 1.9 % (0-5); GRANULOCYTE % 74.4 % (42.2-75.2); HEMATOCRIT 33.8 % (37-47); MEAN CORPUSCULAR HGB CONC 33.5 G/DL (33.0-37.0); MEAN CORPUSCULAR VOLUME 92.4 FL (81.0-99.0); MEAN PLATELET VOLUME 8.7 FL (7.4-10.4); PLATELET COUNT 259 /CUMM (130-400); RBC DISTRIBUTION WIDTH 14.3 % (11.5-14.5); RED BLOOD CELL CT 3.66 /CUMM (4.20-5.40); WHITE BLOOD CELL COUNT 9.2 /CUMM (4.8-10.8)
--- NOTE | 2017-03-12 12:30 | NUR ---
POST VOID RESIDUAL ASSESSED- 0 MLS NOTED. WILL CONT TO MONITOR.
--- NOTE | 2017-03-12 13:24 | PN- Att Addend ---
Attending Addendum Attending Brief Note Patient seen and examined, she denies any pain. She did work with physical therapy this morning. Patient is admitted with fall. She is also started on antibiotics for possible UTI. Vital Signs Date Time Temp Pulse Resp B/P B/P Pulse O2 O2 Flow FiO2 Mean Ox Delivery Rate 03/12 1219 73 128/62 03/12 1219 73 128/62 03/12 0707 99.1 95 20 118/52 94 03/12 0230 98.0 75 20 130/60 96 03/12 0049 97.2 69 20 136/63 96 Room Air 03/11 2225 88 18 140/64 96 Room Air 03/11 1809 98 Room Air 03/11 1808 98.2 106 20 140/65 98 Room Air on exam; aox3, nad. hard of hearing. cv; s1,s2, rrr resp; clear abd; soft, nt, bs+ ext; no edma Laboratory Tests 03/120 2009 Chemistry Sodium (137 - 145 mmol/L) 141 139 Potassium (3.5 - 5.1 mmol/L) 5.1 5.1 Chloride (98 - 107 mmol/L) 111 H 109 H Carbon Dioxide (22 - 30 mmol/L) 18 L 20 L Anion Gap (5 - 16) 12 10 BUN (7 - 17 mg/dL) 22 H 27 H Creatinine (0.5 - 1.0 mg/dL) 1.1 H 1.0 Estimated GFR (>60 ml/min) 47 L 53 L BUN/Creatinine Ratio (7 - 25 %) 20.0 27.0 H Glucose (65 - 99 mg/dL) 102 H Calcium (8.4 - 10.2 mg/dL) 10.1 Total Bilirubin (0.2 - 1.3 mg/dL) 0.3 AST (14 - 36 U/L) 21 ALT (9 - 52 U/L) 21 Alkaline Phosphatase (<127 U/L) 122 Creatine Kinase (30 - 135 U/L) 79 Total Protein (6.3 - 8.2 g/dL) 7.0 Albumin (3.5 - 5.0 g/dL) 4.3 Globulin (1.9 - 4.2 gm/dL) 2.7 Albumin/Globulin Ratio (1.1 - 2.2 %) 1.6 Vitamin B12 (239 - 931 pg/mL) 539 478 Hematology CBC w Diff NO MAN DIFF REQ NO MAN DIFF REQ WBC (4.8 - 10.8 /CUMM) 9.2 11.6 H RBC (4.20 - 5.40 /CUMM) 3.66 L 3.67 L Hgb (12.0 - 16.0 G/DL) 11.4 L 11.2 L Hct (37 - 47 %) 33.8 L 33.7 L MCV (81.0 - 99.0 FL) 92.4 91.8 MCH (27.0 - 31.0 PG) 31.0 30.4 RDW (11.5 - 14.5 %) 14.3 14.6 H Plt Count (130 - 400 /CUMM) 259 256 MPV (7.4 - 10.4 FL) 8.7 8.4 Gran % (42.2 - 75.2 %) 74.4 78.4 H Lymphocytes % (20.5 - 51.1 %) 13.0 L 11.7 L Monocytes % (1.7 - 9.3 %) 10.3 H 8.7 Eosinophils % (0 - 5 %) 1.9 1.0 Basophils % (0.0 - 2.0 %) 0.4 0.2 Absolute Granulocytes (1.4 - 6.5 /CUMM) 6.8 H 9.1 H Absolute Lymphocytes (1.2 - 3.4 /CUMM) 1.2 1.4 Absolute Monocytes (0.10 - 0.60 /CUMM) 0.9 H 1.0 H Absolute Eosinophils (0.0 - 0.7 /CUMM) 0.2 0.1 Absolute Basophils (0.0 - 0.2 /CUMM) 0 0 PUBS MCHC (33.0 - 37.0 G/DL) 33.5 33.2 A/p; 86 y/o F with pmh sg for HTN, HLD, DM and osteoporosis admitted with a fall. There is also question of UTI and patient has been started on ceftriaxone. Patient currently denies any pain. Will follow urinalysis and urine culture. If remains are negative then stopped antibiotics. Patient will be working with physical therapy and occupation therapy and will likely benefit by going to rehabilitation. Cervical spine CT shows thyroid nodule can be worked up as an outpatient. Continue the rest of the medications. DVT px; lovenox.
[2017-03-12 14:50] VITALS: BP 124/60
[2017-03-12 22:20] VITALS: BP 130/50
[2017-03-13 06:38] VITALS: BP 102/50
--- NOTE | 2017-03-13 07:30 | NUR ---
LATE ENTRY NURSING NOTE: PATIENT VOIDED 30ML OVERNIGHT; BLADDER SCANNED AT THIS TIME = >800 ML. DAY NIA PEREZ INFORMED OF ABOVE, WILL FOLLOW UP WITH MD FOR STRAIGHT CATH ORDER.
--- NOTE | 2017-03-13 08:13 | Discharge Summary ---
Visit Information Visit Dates Admission Date: 03/11/17 Discharge Date: 03/16/2017 Hospital Course Course Attending Physician: BEST MINAYA,KIARRA Primary Care Physician: SOLANGE MINAYA,Flowers Hospital Course: This is an 86 yo caucasion F presenting to the ED after 2 unwitnessed falls. She has a PMH of HTN, HLD, DM and osteoporosis. She usually walks with a walker and on admission day she attempted to walk across her house to get her mail without her walker, she felt her R knee give out, and fell; similar incident for second fall. She did not hit her head, or suffer any significant injury, she denies LOC , chest pain, SOB, palpitations, lightheadedness, or diziness. ---- During admission pt was evaluated for the following problems: Mechanical fall: Pt had PT/OT consult, and pain management in Gen Med floor. PT suggested STR for patient. * Xray spine- Osteopenia with multiple mild compression deformities in the lower thoracic spine, unchanged from 03/10/2017 and new from 2005 and 2016. Multilevel degenerative disc disease and scoliosis. * Orthostatic vitals WNL * Adequate analgesia Tylenol 650 by mouth every 6 for mild pain Tylenol 1000 IV every 6 for moderate pain and morphine 1 MG every 6 for severe pain * B12 539 and CPK 79 WNR * PT- will require STR placement Decreased Urinary Frequency: Initially pt came in with increased urinary frequency and now has decreased urination the last two days of admission. Only change was addition of gabapentin which we suspect could be cause of her decreased urination. We d.c medication. Urology evaluated patient and suggested straight cath protocol and follow up in office in one to two weeks. * Would check pvr q shift with bladder scan. If > 350 cc then would str cath * If patient goes to rehab intermittent cath as above can be done there * f/u in our office 1-2 weeks after discharge with Dr Vila UTI: Patient was symptomatic, although her WBC count was not impressive she was started on Bactrim by her PCP. Patient continues to have urinary urgency every 15 minutes or so. We determined no retention via bladder scan. Pt finished 3 days of IV ceftriaxone. * Follow-up urine culture NGTD * Follow up urology outpatient Thyroid nodule Cervical spine CT shows thyroid nodule can be worked up as an outpatient. * Outpatient follow-up History of htn - c/w home medications (lisinopril 10mg daily, amlodipine 5 mg daily) Diabetes mellitus * Accu-Cheks * Insulin sliding Scale Anxiety * Condition Ativan 0.25 when necessary Hyperlipidemia * Continue Lipitor 20mg Hyperkalemia: Pt had K max of 5.4 x1 and was given kayexalate. K subsequently normalized. #dvt prophylaxis - lovenox Allergies: Coded Allergies: No Known Allergies (06/29/16) Pertinent Lab Results: Laboratory Tests 03/13 03/12 0631 1450 Chemistry Sodium (137 - 145 mmol/L) 142 Potassium (3.5 - 5.1 mmol/L) 5.3 H Chloride (98 - 107 mmol/L) 112 H Carbon Dioxide (22 - 30 mmol/L) 18 L Anion Gap (5 - 16) 12 BUN (7 - 17 mg/dL) 28 H Creatinine (0.5 - 1.0 mg/dL) 1.3 H Estimated GFR (>60 ml/min) 39 L BUN/Creatinine Ratio (7 - 25 %) 21.5 Hematology CBC w Diff NO MAN DIFF REQ WBC (4.8 - 10.8 /CUMM) 8.7 RBC (4.20 - 5.40 /CUMM) 3.62 L Hgb (12.0 - 16.0 G/DL) 11.2 L Hct (37 - 47 %) 33.5 L MCV (81.0 - 99.0 FL) 92.4 MCH (27.0 - 31.0 PG) 30.8 RDW (11.5 - 14.5 %) 14.7 H Plt Count (130 - 400 /CUMM) 257 MPV (7.4 - 10.4 FL) 8.8 Gran % (42.2 - 75.2 %) 71.7 Lymphocytes % (20.5 - 51.1 %) 16.0 L Monocytes % (1.7 - 9.3 %) 9.4 H Eosinophils % (0 - 5 %) 2.6 Basophils % (0.0 - 2.0 %) 0.3 Absolute Granulocytes (1.4 - 6.5 /CUMM) 6.2 Absolute Lymphocytes (1.2 - 3.4 /CUMM) 1.4 Absolute Monocytes (0.10 - 0.60 /CUMM) 0.8 H Absolute Eosinophils (0.0 - 0.7 /CUMM) 0.2 Absolute Basophils (0.0 - 0.2 /CUMM) 0 PUBS MCHC (33.0 - 37.0 G/DL) 33.4 Urines Urine Color (YEL,AMB,STR) YEL Urine Clarity (CLEAR) HAZY H Urine pH (5.0 - 8.0) 6.0 Ur Specific [place] (1.001 - 1.035) 1.010 Urine Protein (NEG,<30 MG/DL) TRACE H Urine Ketones (NEG) NEG Urine Nitrite (NEG) NEG Urine Bilirubin (NEG) NEG Urine Urobilinogen (0.1 - 1.0 EU/dl) 0.2 Ur Leukocyte Esterase (NEG) SMALL H Ur Microscopic SEDIMENT EXAMINED Urine RBC (0 - 5 /HPF) 1-3 Urine WBC (0 - 2 /HPF) 5-10 H Ur Epithelial Cells (NONE,FEW) PACKD H Urine Bacteria (NEG/NONE) RARE H Hyaline Casts (0/LPF) RARE H Urine Mucus (FEW,NONE) RARE Urine Hemoglobin (NEG) NEG Urine Glucose (N MG/DL) NEG Disposition Summary Disposition Principal Diagnosis: fall Additional Diagnosis: uti Discharge Disposition: SNF Discharge Instructions General Discharge Information Code Status: Full Code Patient's Diet: as tolerated Patient's Activity: as tolerated. needs rehab for falls Follow-Up Instructions/Appts: see above Medications at Discharge Discharge Medications: Stop taking the following medications: Meclizine HCl (Meclizine HCl) 25 MG TABLET ORAL THREE TIMES A DAY NEEDED as needed for DIZZINESS/VERTIGO Qty = 30 Ondansetron HCl (Zofran) 4 MG TABLET ORAL Every 6-8 Hours as Needed as needed for NAUSEA Qty = 10 Sulfamethoxazole/Trimethoprim (Sulfamethoxazole-Tmp Ds Tablet) 800 MG-160 MG TABLET ORAL TWICE DAILY Qty = 10 Continue taking these medications: Metformin HCl (Metformin HCl) 1,000 MG TABLET 1 Tablet ORAL DAILY Qty = 180 Rosuvastatin Calcium (Crestor) 20 MG TABLET 1 Tablet ORAL DAILY Qty = 90 Gemfibrozil (Gemfibrozil) 600 MG TABLET 1 Tablet ORAL TWICE DAILY Qty = 180 Amlodipine Besylate/Benazepril (Amlodipine-Benazepril 5-10 MG) 1 EACH CAPSULE 1 Capsule ORAL DAILY Qty = 90 Aspirin (Ecotrin*) 81 MG TABLET.DR 1 Tablet ORAL DAILY Cholecalciferol (Vitamin D3) (Vitamin D) 1,000 UNIT TABLET 3 Capsule ORAL DAILY Escitalopram Oxalate (Lexapro) 5 MG TABLET 1 Tablet ORAL DAILY Lorazepam (Lorazepam) 0.5 MG TABLET 0.5 Tablet ORAL Every night Qty = 60 Acetaminophen With Codeine (Acetaminophen-Cod #3 Tablet) 300 MG-30 MG TABLET 1 Tablet ORAL As Directed as needed for PAIN Qty = 60 Ibuprofen (Advil) 200 MG TABLET 2 Tablet ORAL as needed for PAIN Start taking the following new medications: Sennosides/Docusate Sodium (Senna Plus Tablet) 8.6 MG-50 MG TABLET 1 Tablet ORAL DAILY as needed for CONSTIPATION Qty = 30 No Refills Copies To: SOLANGE MINAYA,JAMIE
[2017-03-13 08:24] LABS: ABSOLUTE BASOPHIL COUNT 0 /CUMM (0.0-0.2); ABSOLUTE EOSINOPHIL COUNT 0.2 /CUMM (0.0-0.7); ABSOLUTE GRANULOCYTE CT 6.2 /CUMM (1.4-6.5); ABSOLUTE LYMPH COUNT 1.4 /CUMM (1.2-3.4); ABSOLUTE MONOCYTE COUNT 0.8 /CUMM (0.10-0.60); BASOPHIL % 0.3 % (0.0-2.0); EOSINOPHIL % 2.6 % (0-5); GRANULOCYTE % 71.7 % (42.2-75.2); HEMATOCRIT 33.5 % (37-47); MEAN CORPUSCULAR HGB 30.8 PG (27.0-31.0); MEAN CORPUSCULAR HGB CONC 33.4 G/DL (33.0-37.0); MEAN CORPUSCULAR VOLUME 92.4 FL (81.0-99.0); MEAN PLATELET VOLUME 8.8 FL (7.4-10.4); PLATELET COUNT 257 /CUMM (130-400); RBC DISTRIBUTION WIDTH 14.7 % (11.5-14.5); RED BLOOD CELL CT 3.62 /CUMM (4.20-5.40); WHITE BLOOD CELL COUNT 8.7 /CUMM (4.8-10.8)
--- NOTE | 2017-03-13 10:04 | PN- Housestaff ---
See Addendum Subjective Follow-up For: Fall Subjective: I have seen and examined the patient. The patient was sitting comfortably in the chair she was having breakfast. She said that she has had a very good breakfast with fruits and ate more than she should have. She does not complain of any pain right now. She denies any acute overnight events. There is no complaint of fever chest pain or shortness of breath. However she does complain of increased urinary urgency. Review of Systems Constitutional: Reports: no symptoms. Cardiovascular: Denies: chest pain, palpitations. Respiratory: Denies: hemoptysis, short of breath. Gastrointestinal: Reports: no symptoms. Genitourinary: Denies: urgency. Objective Last 24 Hrs of Vital Signs/I&O Vital Signs Date Time Temp Pulse Resp B/P B/P Pulse O2 O2 Flow FiO2 Mean Ox Delivery Rate 03/13 1028 84 102/50 03/13 0638 98.7 84 20 102/50 96 03/12 2220 98.6 93 22 130/50 94 03/12 1715 Room Air 03/12 1450 99.5 95 20 124/60 96 Room Air 03/12 1219 73 128/62 03/12 1219 73 128/62 Intake & Output 03/13 1600 03/13 0800 03/13 0000 Intake Total 250 500 Output Total 300 30 400 Balance -300 220 100 Intake, IV 10 Intake, Oral 240 500 Number 1 0 Bowel Movements Output, Urine 300 30 400 Physical Exam General Appearance: Alert, Oriented X3, Cooperative Skin: No Rashes, several echymosis b/l arms and r elbow abrassion Cardiovascular: Normal S1, Normal S2, No Murmurs Lungs: Clear to Auscultation, Normal Air Movement Abdomen: Normal Bowel Sounds, Soft, No Tenderness Neurological: Normal Speech Current Medications: Current Medications Sig/Tyrese Start time Last Medication Dose Route Stop Time Status Admin Acetaminophen 650 MG Q6P PRN 03/12 0100 AC PO Acetaminophen 1,000 MG Q6P PRN 03/12 0100 AC IV Amlodipine Besylate 5 MG DAILY 03/12 1000 AC 03/13 PO 1028 Aspirin Buffered 81 MG DAILY 03/12 1000 AC 03/13 PO 1028 Atorvastatin Calcium 20 MG 1700 03/12 1700 AC 03/12 PO 1735 Ceftriaxone Sodium 1,000 MG DAILY 03/12 1000 AC 03/13 IV 03/14 1001 1028 Cholecalciferol 1,000 IU DAILY 03/12 1000 AC 03/13 PO 1028 Enoxaparin Sodium 40 MG DAILY 03/12 1000 AC 03/13 SC 1027 Escitalopram Oxalate 5 MG DAILY 03/12 1000 AC 03/13 PO 1028 Gabapentin 100 MG AT BEDTIME 03/12 2200 AC 03/12 PO 2046 Gemfibrozil 600 MG BID 03/12 1000 AC 03/13 PO 1028 Insulin Aspart 0 TIDAC 03/12 0800 AC 03/12 SC 1735 Lisinopril 10 MG DAILY 03/12 1000 DC 03/12 PO 1219 Lorazepam 0.25 MG QPM 03/12 2200 AC 03/12 PO 03/19 215 204 Morphine Sulfate 1 MG Q6-PRN PRN 03/12 0100 AC IV Polyethylene Glycol 17 GM DAILY 03/12 1000 AC 03/12 PO 1220 Senna/Docusate Sodium 1 TAB BID PRN 03/12 0115 AC PO Sodium Chloride 500 ML .[id number] 03/13 1015 AC IV 03/13 1654 Sodium Chloride 1,000 ML .[id number] 03/12 0045 DC 03/12 IV 03/12 1404 0201 Last 24 Hrs of Lab/Winston Results Last 24 Hrs of Labs/Mics: Laboratory Tests 03/13/17 0631: Anion Gap 12, Estimated GFR 39 L, BUN/Creatinine Ratio 21.5, CBC w Diff NO MAN DIFF REQ, RBC 3.62 L, MCV 92.4, MCH 30.8, RDW 14.7 H, MPV 8.8, Gran % 71.7, Lymphocytes % 16.0 L, Monocytes % 9.4 H, Eosinophils % 2.6, Basophils % 0.3, Absolute Granulocytes 6.2, Absolute Lymphocytes 1.4, Absolute Monocytes 0.8 H, Absolute Eosinophils 0.2, Absolute Basophils 0, PUBS MCHC 33.4 03/12/17 1450: Urine Color YEL, Urine Clarity HAZY H, Urine pH 6.0, Ur Specific [place] 1.010, Urine Protein TRACE H, Urine Ketones NEG, Urine Nitrite NEG, Urine Bilirubin NEG, Urine Urobilinogen 0.2, Ur Leukocyte Esterase SMALL H, Ur Microscopic SEDIMENT EXAMINED, Urine RBC 1-3, Urine WBC 5-10 H, Ur Epithelial Cells PACKD H, Urine Bacteria RARE H, Hyaline Casts RARE H, Urine Mucus RARE, Urine Hemoglobin NEG, Urine Glucose NEG Microbiology 03/12 1450 URINE ROUT: Urine Culture - RES Assessment/Plan Assessment: Pt is an 86 yo caucasion F presenting to the ED after 2 unwitnessed falls today. She has a pmh significant for HTN, HLD, DM, and osteoporosis. She did not hit her head, or suffer any significant injury, she denies LOC, chest pain, SOB, palpitations, lightheadedness, or diziness at the time of the falls. ED workup Vitals on admission 98.2, 106, 20, 140/65, 98 Her CBC and BEP are near or very close to normal limits. CAT scan of her cervical spine which shows multilevel neural foraminal narrowing , right thyroid nodule; CAT scan of spine showing multilevel degenerative spondylosis, central canal stenosis at L3-L4, and L4-L5 disc levels. Plan: Unwitnessed fall injury, likely mechanical Patient gives a clear account of for mechanical fall, and with the negative history, it is less likely to be any other cause. Her EKG done in the emergency department shows sinus rhythm at rate 81, and normal intervals, no ST-T changes. The patient appears to review her baseline, and lives alone, and is still at fall risk given the history of diabetes and likely neuropathy. * Xray spine- Osteopenia with multiple mild compression deformities in the lower thoracic spine, unchanged from 03/10/2017 and new from 2005 and 2016. Multilevel degenerative disc disease and scoliosis. * Orthostatic vitals WNR * Adequate analgesia Tylenol 650 by mouth every 6 for mild pain Tylenol 1000 IV every 6 for moderate pain and morphine 1 MG every 6 for severe pain * B12 539 and CPK 79 WNR * PT- will require STR placement Urinary tract infection Patient was symptomatic, although her WBC count was not impressive and was started on Bactrim by her PCP. Patient continues to have urinary urgency every 15 minutes or so, cause of which has not been explored so far apparently. * BladderScan to determine post void residual volume * IV ceftriaxone for 2/3 days * Follow-up urine culture that was sent in her prior visit, preliminary report after 1 day does not show any growth Hyperkalemiatoday's lab showed potassium of 5.3 * Gentle IV hydration with half normal saline 500 mL at rate of 75 mL per hour * Repeat BP at 3 PM Thyroid nodule Cervical spine CT shows thyroid nodule can be worked up as an outpatient. * Outpatient follow-up Hypertension * Continue lisinopril 10 mg daily * Continue amlodipine 5 mg daily Diabetes mellitus * Accu-Cheks * Insulin sliding Scale Anxiety * Condition Ativan 0.25 when necessary Hyperlipidemia * Continue Lipitor 20mg Problem List: 1. UTI (urinary tract infection) 2. Fall Pain Ratin Pain Location: back Pain Goal: Pain 4 or less Pain Plan: Tylenol 650 by mouth every 6 for mild pain Tylenol 1000 IV every 6 for moderate pain and morphine 1 MG every 6 for severe pain Tomorrow's Labs & Rationales: cbc bep DVT/Prophylaxis: Lovenox
--- NOTE | 2017-03-13 11:29 | Patient Discharge Instructions ---
Discharge Instructions General Discharge Information You were seen/treated for: Fall UTI Watch for these problems: Fever Shortness of breath Chest pain Pain or burning while urination Special Instructions: Please follow-up with your PCP Please follow up w/ your urologist Would check pvr q shift with bladder scan. If > 350 cc then would str cath F/U in our office 1-2 weeks after discharge with Dr Vila Diet Recommended Diet: Diabetic, Heart Healthy Activity Activity Self Limited: Yes Acute Coronary Syndrome Inclusion Criteria At DC or during hospital stay patient has or had the following: ACS DIAGNOSIS No Discharge Core Measures Meds if any: Prescribed or Continued at Discharge Meds if any: NOT Prescribed or Continued at Discharge Congestive Heart Failure Inclusion Criteria At DC or during hospital stay patient has or had the following: CHF DIAGNOSIS No Discharge Core Measures Meds if any: Prescribed or Continued at Discharge Meds if any: NOT Prescribed or Continued at Discharge Cerebrovascular accident Inclusion Criteria At DC or during hospital stay patient has or had the following: CVA/TIA Diagnosis No Discharge Core Measures Meds if any: Prescribed or Continued at Discharge Meds if any: NOT Prescribed or Continued at Discharge Venous thromboembolism Inclusion Criteria VTE Diagnosis No VTE Type NONE VTE Confirmed by (Test) NONE Discharge Core Measures - Per Current guidelines, there needs to be overlap - treatment for the first 5 days of Warfarin therapy. - If discharged on Warfarin prior to 5 days of - overlap therapy, the patient will need to be - assessed for post discharge needs including - *Post discharge parental anticoagulation - *Warfarin and/or parental anticoagulation education - *Follow up date to check INR post discharge At least 5 days overlap therapy as Inpatient No Meds if any: Prescribed or Continued at Discharge Note: Overlap Therapy is Warfarin and Anticoagulant Meds if any: NOT Prescribed or Continued at Discharge
[2017-03-13 14:37] VITALS: BP 120/60
[2017-03-13] MEDS ORDERED: SENNA PLUS TAB1 EACH PO (15:26)
--- NOTE | 2017-03-13 15:54 | NUR ---
PT VOIDED 100MLS ON BLADDER SCAN. POST VOID BLADDER SCAN WAS >[address] CATH OUTPUT 690 MLS.
--- NOTE | 2017-03-13 17:28 | NUR ---
PT RECEIVED LOVENOX THIS MORNING AND NEW ORDER TO DC LOVENOX AND START HEPARIN ON PT. PT RECEIVED ONE DOSE OF HEPARIN WELL. RESIDENT REJI MADE AWARE. PER REJI, TO HOLD OFF ON 2200 DOSE OF HEPARIN.
--- NOTE | 2017-03-13 21:20 | NUR ---
PT DID NOT VOID DURING THIS RNS SHIFT DESPITE MULTIPLE ATTEMPTS ON BEDPAN TO TRY TO VOID. BLADDER SCAN REVEALED >500ML. PT STRAIGHT CATHED AT THIS TIME AND GOT 600ML. WILL CONTINUE TO MONITOR.
[2017-03-13 23:14] VITALS: BP 143/74
[2017-03-14 06:55] VITALS: BP 127/62
[2017-03-14 08:29] LABS: ABSOLUTE BASOPHIL COUNT 0 /CUMM (0.0-0.2); ABSOLUTE EOSINOPHIL COUNT 0.2 /CUMM (0.0-0.7); ABSOLUTE GRANULOCYTE CT 8.7 /CUMM (1.4-6.5); ABSOLUTE LYMPH COUNT 1.5 /CUMM (1.2-3.4); ABSOLUTE MONOCYTE COUNT 0.9 /CUMM (0.10-0.60); BASOPHIL % 0.2 % (0.0-2.0); GRANULOCYTE % 76.7 % (42.2-75.2); HEMATOCRIT 32.1 % (37-47); MEAN CORPUSCULAR HGB 30.8 PG (27.0-31.0); MEAN CORPUSCULAR HGB CONC 33.3 G/DL (33.0-37.0); MEAN CORPUSCULAR VOLUME 92.4 FL (81.0-99.0); MEAN PLATELET VOLUME 8.7 FL (7.4-10.4); PLATELET COUNT 255 /CUMM (130-400); RBC DISTRIBUTION WIDTH 14.7 % (11.5-14.5); RED BLOOD CELL CT 3.48 /CUMM (4.20-5.40); WHITE BLOOD CELL COUNT 11.4 /CUMM (4.8-10.8)
--- NOTE | 2017-03-14 09:24 | PN- Housestaff ---
VANCE MINAYA,GUY 03/14/17 0924: Subjective Follow-up For: Mechanical fall UTI Subjective: Patient was sitting in the chair and said that she has soiled herself because of uncontrolled clue stools. Also complains of burning sensation in her left feet. Denies any fevers, chills, vomiting, shortness of breath or overnight events. Review of Systems Constitutional: Reports: no symptoms. EENTM: Reports: no symptoms. Cardiovascular: Reports: no symptoms. Respiratory: Reports: no symptoms. Gastrointestinal: Reports: see HPI. Genitourinary: Reports: no symptoms. Musculoskeletal: Reports: see HPI. Skin: Reports: no symptoms. Neurological/Psychological: Reports: no symptoms. Hematologic/Endocrine: Reports: no symptoms. Immunologic/Allergic: Reports: no symptoms. Objective Last 24 Hrs of Vital Signs/I&O Vital Signs Date Time Temp Pulse Resp B/P B/P Pulse O2 O2 Flow FiO2 Mean Ox Delivery Rate 03/14 0655 99.2 110 20 127/62 96 Room Air 03/13 2314 100.2 89 18 143/74 96 Room Air Intake & Output 03/14 1600 03/14 0800 03/14 0000 Intake Total 835 0 1100 Output Total 200 700 600 Balance 635 -700 500 Intake, IV 15 300 Intake, Oral 820 0 800 Number 4 3 Bowel Movements Output, Urine 200 700 600 Physical Exam General Appearance: Alert, Oriented X3, Cooperative Other Physical Findings: Skin: No Rashes, several echymosis b/l arms and r elbow abrassion Cardiovascular: Normal S1, Normal S2, No Murmurs Lungs: Clear to Auscultation, Normal Air Movement Abdomen: Normal Bowel Sounds, Soft, No Tenderness Neurological: Normal Speech Current Medications: Current Medications Sig/Tyrese Start time Last Medication Dose Route Stop Time Status Admin Acetaminophen 650 MG .STK-MED ONE 03/14 1004 DC PO 03/14 1005 Acetaminophen 650 MG Q6P PRN 03/12 0100 AC 03/14 PO 1005 Acetaminophen 1,000 MG Q6P PRN 03/12 0100 AC IV Amlodipine Besylate 5 MG DAILY 03/12 1000 AC 03/14 PO 1005 Aspirin Buffered 81 MG DAILY 03/12 1000 AC 03/14 PO 1005 Atorvastatin Calcium 20 MG 1700 03/12 1700 AC 03/14 PO 1726 Ceftriaxone Sodium 1,000 MG DAILY 03/12 1000 DC 03/14 IV 03/14 1001 1004 Cholecalciferol 1,000 IU DAILY 03/12 1000 AC 03/14 PO 1005 Escitalopram Oxalate 5 MG DAILY 03/12 1000 AC 03/14 PO 1005 Gabapentin 100 MG AT BEDTIME 03/12 2200 AC 03/13 PO 2055 Gemfibrozil 600 MG BID 03/12 1000 AC 03/14 PO 1005 Heparin Sodium 5,000 UNIT Q8 03/13 1400 AC 03/14 (Porcine) SC 1446 Insulin Aspart 0 TIDAC 03/12 0800 AC 03/13 SC 1505 Lorazepam 0.25 MG QPM 03/12 2200 AC 03/13 PO 03/19 2159 205 Morphine Sulfate 1 MG Q6-PRN PRN 03/12 0100 AC IV Nystatin 1 DEB BID PRN 03/14 1700 AC 03/14 TOP 1849 Polyethylene Glycol 17 GM DAILY 03/12 1000 AC 03/12 PO 1220 Senna/Docusate Sodium 1 TAB BID PRN 03/12 0115 AC PO Sodium Polystyrene 60 ML ONCE ONE 03/14 1845 DC Sulfonate PO 03/14 1846 Last 24 Hrs of Lab/Winston Results Last 24 Hrs of Labs/Mics: Laboratory Tests 03/14/17 0643: Anion Gap 11, Estimated GFR 47 L, BUN/Creatinine Ratio 25.5 H, CBC w Diff NO MAN DIFF REQ, RBC 3.48 L, MCV 92.4, MCH 30.8, RDW 14.7 H, MPV 8.7, Gran % 76.7 H, Lymphocytes % 13.5 L, Monocytes % 7.6, Eosinophils % 2.0, Basophils % 0.2, Absolute Granulocytes 8.7 H, Absolute Lymphocytes 1.5, Absolute Monocytes 0.9 H, Absolute Eosinophils 0.2, Absolute Basophils 0, PUBS MCHC 33.3 Microbiology 03/14 0208 STOOL: Clostridium difficile Toxin A & B - COLB Assessment/Plan Assessment: Pt is an 86 yo caucasion F presenting to the ED after 2 unwitnessed falls today. She has a pmh significant for HTN, HLD, DM, and osteoporosis. She did not hit her head, or suffer any significant injury, she denies LOC, chest pain, SOB, palpitations, lightheadedness, or diziness at the time of the falls. ED workup Vitals on admission 98.2, 106, 20, 140/65, 98 Her CBC and BEP are near or very close to normal limits. CAT scan of her cervical spine which shows multilevel neural foraminal narrowing , right thyroid nodule; CAT scan of spine showing multilevel degenerative spondylosis, central canal stenosis at L3-L4, and L4-L5 disc levels. Plan: Unwitnessed fall injury, likely mechanical Patient gives a clear account of for mechanical fall, and with the negative history, it is less likely to be any other cause. Her EKG done in the emergency department shows sinus rhythm at rate 81, and normal intervals, no ST-T changes. The patient appears to review her baseline, and lives alone, and is still at fall risk given the history of diabetes and likely neuropathy. * Xray spine- Osteopenia with multiple mild compression deformities in the lower thoracic spine, unchanged from 03/10/2017 and new from 2005 and 2015. Multilevel degenerative disc disease and scoliosis. * Orthostatic vitals WNR * Adequate analgesia Tylenol 650 by mouth every 6 for mild pain Tylenol 1000 IV every 6 for moderate pain and morphine 1 MG every 6 for severe pain * B12 539 and CPK 79 WNR * PT- will require STR placement Urinary tract infection Patient was symptomatic, although her WBC count was not impressive and was started on Bactrim by her PCP. Patient continues to have urinary urgency every 15 minutes or so, cause of which has not been explored so far apparently. * Patient was unable to urinate today and was straight cathed. * BladderScan to determine post void residual volume. * IV ceftriaxone for 2/3 days * Follow-up urine culture that was sent in her prior visit, preliminary report after 1 day does not show any growth Hyperkalemia * today's lab showed potassium of 5.4. Given 1 dose of kayoxelate Thyroid nodule Cervical spine CT shows thyroid nodule can be worked up as an outpatient. * Outpatient follow-up Hypertension * Continue lisinopril 10 mg daily * Continue amlodipine 5 mg daily Diabetes mellitus * Accu-Cheks * Insulin sliding Scale Anxiety * Condition Ativan 0.25 when necessary Hyperlipidemia * Continue Lipitor 20mg Problem List: 1. Fall 2. UTI (urinary tract infection) Pain Ratin Pain Location: Back Pain Goal: Remain pain free Pain Plan: Pain pathway Tomorrow's Labs & Rationales: CBC(UTI), BEP(hyperkalemia) AHMET MINAYA,[facility] 03/14/17 1611: Attending MD Review Statement Attending Statement Attending MD Statement: examined this patient, discuss w/resident/PA/SAUSAGE MACHINE OPERATOR, agreed w/resident/PA/SAUSAGE MACHINE OPERATOR, reviewed EMR data (avail), discussed with nursing Attending Assessment/Plan: As per RN, having urinary retention. Cont to monitor UO. Likely d/c in am
--- NOTE | 2017-03-14 16:02 | Event Note ---
Event Note Event Note: Subjective: Patient was unable to void and was straight cathed. Background: Mrs. Castro is a 86 year old female who was discharged today after being treated for UTI and symptomatic treatment after having a mechanical fall. At the time of discharge patient reports being unable to void and was straight after doing a bladder scan which showed greater than 600 mL of urine. Myself and Dr. Beltran went to see the patient, who was in distress at that time because of bladder distention. Assessment and plan:
--- NOTE | 2017-03-14 16:52 | NUR ---
ST. CATH PERFORMED AT 1330 TODAY, 200ML CLEAR, YELLOW URINE OBTAINED. NOTIFIED. WILL CONTINUE TO FORCE FLUIDS.
--- NOTE | 2017-03-14 20:41 | NUR ---
1999- DR. HAGAN NOTIFIED PT VULVA EDEMATOUS AND RED. NYSTATIN POWDER APPLIED. DR HAGAN ALSO NOTIFIED PT CONTINUES TO BE UNABLE TO VOID, WHICH IS NOT HER BASELINE AND CONTINUES TO HAVE WEAKNESS TO LOWER EXTREMITIES, WHICH IS NOT HER BASELINE. NO NEW ORDERS AT THIS TIME.
[2017-03-14 23:23] VITALS: BP 147/66
[2017-03-15 06:36] VITALS: BP 156/67
[2017-03-15 09:12] LABS: ABSOLUTE BASOPHIL COUNT 0 /CUMM (0.0-0.2); ABSOLUTE EOSINOPHIL COUNT 0.3 /CUMM (0.0-0.7); ABSOLUTE GRANULOCYTE CT 4.3 /CUMM (1.4-6.5); ABSOLUTE MONOCYTE COUNT 0.8 /CUMM (0.10-0.60); BASOPHIL % 0.4 % (0.0-2.0); EOSINOPHIL % 3.8 % (0-5); GRANULOCYTE % 58.2 % (42.2-75.2); HEMATOCRIT 31.8 % (37-47); MEAN CORPUSCULAR HGB 30.7 PG (27.0-31.0); MEAN CORPUSCULAR HGB CONC 32.9 G/DL (33.0-37.0); MEAN CORPUSCULAR VOLUME 93.2 FL (81.0-99.0); MEAN PLATELET VOLUME 8.6 FL (7.4-10.4); PLATELET COUNT 246 /CUMM (130-400); RBC DISTRIBUTION WIDTH 14.7 % (11.5-14.5); RED BLOOD CELL CT 3.41 /CUMM (4.20-5.40); WHITE BLOOD CELL COUNT 7.4 /CUMM (4.8-10.8)
--- NOTE | 2017-03-15 12:18 | PN- Housestaff ---
FERNANDO MINAYA,[facility] 03/15/17 1218: Subjective Follow-up For: Mechanical fall UTI Subjective: I seen and examined the patient. The patient was sitting in the bed. She was having breakfast. She denied any fever or chills vomiting shortness of breath. There were no overnight acute events. She has been unable to void. Review of Systems Constitutional: Reports: see HPI. Objective Last 24 Hrs of Vital Signs/I&O Vital Signs Date Time Temp Pulse Resp B/P B/P Pulse O2 O2 Flow FiO2 Mean Ox Delivery Rate 03/15 1448 98.8 95 16 125/57 93 Room Air 03/15 0911 91 128/58 03/15 0636 98.7 79 20 156/67 97 Room Air 03/14 2323 98.3 83 20 147/66 98 Room Air Intake & Output 03/15 1600 03/15 0800 03/15 0000 Intake Total 825 120 490 Output Total 800 350 Balance 25 -230 490 Intake, IV 225 10 Intake, Oral 600 120 480 Number 3 3 Bowel Movements Output, Urine 800 350 Physical Exam General Appearance: Alert, Oriented X3, Cooperative Skin: several echymosis b/l arms and r elbow abrassio Cardiovascular: Normal S1, Normal S2 Lungs: Clear to Auscultation, Normal Air Movement Neurological: Normal Speech Current Medications: Current Medications Sig/Tyrese Start time Last Medication Dose Route Stop Time Status Admin Acetaminophen 650 MG .STK-MED ONE 03/14 2155 DC PO 03/14 215 Acetaminophen 650 MG Q6P PRN 03/12 0100 AC 03/14 PO 2154 Acetaminophen 1,000 MG Q6P PRN 03/12 0100 AC IV Amlodipine Besylate 5 MG DAILY 03/12 1000 AC 03/15 PO 0911 Aspirin Buffered 81 MG DAILY 03/12 1000 AC 03/15 PO 0910 Atorvastatin Calcium 20 MG 1700 03/12 1700 AC 03/15 PO 1636 Cholecalciferol 1,000 IU DAILY 03/12 1000 AC 03/15 PO 0911 Escitalopram Oxalate 5 MG DAILY 03/12 1000 AC 03/15 PO 0910 Gabapentin 100 MG AT BEDTIME 03/12 2200 AC 03/14 PO 2148 Gemfibrozil 600 MG BID 03/12 1000 AC 03/15 PO 0910 Heparin Sodium 5,000 UNIT Q8 03/13 1400 AC 03/15 (Porcine) SC 1425 Insulin Aspart 0 TIDAC 03/12 0800 AC 03/13 SC 1505 Lorazepam 0.25 MG QPM 03/12 2200 AC 03/14 PO 03/19 2159 214 Morphine Sulfate 1 MG Q6-PRN PRN 03/12 0100 AC IV Nystatin 1 DEB BID PRN 03/15 0915 AC 03/15 TOP 1113 Nystatin 1 DEB BID PRN 03/14 1700 DC 03/14 TOP 1849 Polyethylene Glycol 17 GM DAILY 03/12 1000 AC 03/12 PO 1220 Senna/Docusate Sodium 1 TAB BID PRN 03/12 0115 AC PO Sodium Chloride 1,000 ML Q13H 03/15 1030 AC 03/15 IV 1112 Sodium Polystyrene 60 ML ONCE ONE 03/14 1845 DC 03/14 Sulfonate PO 03/14 Last 24 Hrs of Lab/Winston Results Last 24 Hrs of Labs/Mics: Laboratory Tests 03/15/17 0655: Anion Gap 10, Estimated GFR 53 L, BUN/Creatinine Ratio 24.0, CBC w Diff NO MAN DIFF REQ, RBC 3.41 L, MCV 93.2, MCH 30.7, RDW 14.7 H, MPV 8.6, Gran % 58.2, Lymphocytes % 27.3, Monocytes % 10.3 H, Eosinophils % 3.8, Basophils % 0.4, Absolute Granulocytes 4.3, Absolute Lymphocytes 2.0, Absolute Monocytes 0.8 H, Absolute Eosinophils 0.3, Absolute Basophils 0, PUBS MCHC 32.9 L Assessment/Plan Assessment: Pt is an 86 yo caucasion F presenting to the ED after 2 unwitnessed falls today. She has a pmh significant for HTN, HLD, DM, and osteoporosis. She did not hit her head, or suffer any significant injury, she denies LOC, chest pain, SOB, palpitations, lightheadedness, or diziness at the time of the falls. ED workup Vitals on admission 98.2, 106, 20, 140/65, 98 Her CBC and BEP are near or very close to normal limits. CAT scan of her cervical spine which shows multilevel neural foraminal narrowing , right thyroid nodule; CAT scan of spine showing multilevel degenerative spondylosis, central canal stenosis at L3-L4, and L4-L5 disc levels. Plan: Unwitnessed fall injury, likely mechanical Patient gives a clear account of for mechanical fall, and with the negative history, it is less likely to be any other cause. Her EKG done in the emergency department shows sinus rhythm at rate 81, and normal intervals, no ST-T changes. The patient appears to review her baseline, and lives alone, and is still at fall risk given the history of diabetes and likely neuropathy. * Xray spine- Osteopenia with multiple mild compression deformities in the lower thoracic spine, unchanged from 03/10/2017 and new from 2005 and 2016. Multilevel degenerative disc disease and scoliosis. * Orthostatic vitals WNR * Adequate analgesia Tylenol 650 by mouth every 6 for mild pain Tylenol 1000 IV every 6 for moderate pain and morphine 1 MG every 6 for severe pain * B12 539 and CPK 79 WNR * PT- will require STR placement Urinary tract infection Patient was symptomatic, although her WBC count was not impressive and was started on Bactrim by her PCP. Patient continues to have urinary urgency every 15 minutes or so, cause of which has not been explored so far apparently. * Patient was unable to urinate today and was straight cathed. * BladderScan to determine post void residual volume. * IV ceftriaxone 3 day course complete * Follow-up urine culture that was sent in her prior visit, preliminary report after 1 day does not show any growth Hyperkalemia -resolved * yesterday lab showed potassium of 5.4. Given 1 dose of kayoxelate today it is 4.6 Thyroid nodule Cervical spine CT shows thyroid nodule can be worked up as an outpatient. * Outpatient follow-up Hypertension * Continue lisinopril 10 mg daily * Continue amlodipine 5 mg daily Diabetes mellitus * Accu-Cheks * Insulin sliding Scale Anxiety * Condition Ativan 0.25 when necessary Hyperlipidemia * Continue Lipitor 20mg Problem List: 1. UTI (urinary tract infection) 2. Fall Pain Ratin Pain Location: back Pain Goal: Pain 4 or less Pain Plan: Pain pathway Tomorrow's Labs & Rationales: cbc bep AHMET MINAYA,AMIR 03/15/17 1430: Attending MD Review Statement Attending Statement Attending MD Statement: examined this patient, discuss w/resident/PA/RUGBY UNION FOOTBALLER, agreed w/resident/PA/RUGBY UNION FOOTBALLER, reviewed EMR data (avail), discussed with nursing Attending Assessment/Plan: Can be d/c once Uinary retention is resolved
[2017-03-15 14:48] VITALS: BP 125/57
--- NOTE | 2017-03-15 18:21 | NUR ---
NURSING SHIFT NOTE: PT REMAINS AWAKE, A/OX3, VENETIE IRA, BED ALARM IN PLACE, OOB WITH ASSIST X2 THIS AM, BLE WEAKNESS, MULTIPLE STOOLS TODAY AFTER RECEIVING SPS LAST NIGHT. PT REMAINS UNABLE TO VOID; STRAIGHT CATH Q 8H PER MD #[id number]; LAST STRAIGHT CATH 1400PM; 800ML CLEAR YELLOW OUTPUT. VAGINAL AREA SWOLLEN/RED. NYSTATIN PRN. PT DENIES DISTRESS STATES "I USUALLY PEE EVERY 15 MINUTES AT HOME" MD #[id number] AWARE, PT DENIES PAIN, BED ALARM IN PLACE, NEEDS IN REACH.
[2017-03-15 23:39] VITALS: BP 130/60
[2017-03-16 06:44] VITALS: BP 144/68
--- NOTE | 2017-03-16 09:03 | PN- Housestaff ---
FERNANDO MINAYA,ALLI 03/16/17 0902: Subjective Follow-up For: uti urinary retention Subjective: I seen and examined the patient. The patient was sitting comfortably in the chair. She complained that she has not been able to pass Patient does not complain of any fever or chest pain palpitations or shortness of breath. There were no overnight acute events. We are going to discharge her today to [facility] after following up with urology. Review of Systems Constitutional: Denies: see HPI. Objective Last 24 Hrs of Vital Signs/I&O Vital Signs Date Time Temp Pulse Resp B/P B/P Pulse O2 O2 Flow FiO2 Mean Ox Delivery Rate 03/16 1635 98.0 85 18 130/80 03/16 1531 98.0 85 18 130/80 96 Room Air 03/16 1235 Room Air 03/16 0952 112 180/100 03/16 0644 97.9 88 20 144/68 95 Room Air 03/15 2339 100.0 102 16 130/60 94 Intake & Output 03/16 1600 03/16 0800 03/16 0000 Intake Total 600 1300 Output Total 1000 650 Balance -1000 600 650 Intake, IV 600 900 Intake, Oral 400 Number 5 1 4 Bowel Movements Output, Urine 1000 650 Physical Exam General Appearance: Alert, Oriented X3, Cooperative, No Acute Distress Skin: No Rashes, No Breakdown Cardiovascular: Normal S1, Normal S2, No Murmurs Lungs: Clear to Auscultation, Normal Air Movement Abdomen: Normal Bowel Sounds, Soft, No Tenderness Neurological: Normal Speech Current Medications: Current Medications Sig/Tyrese Start time Last Medication Dose Route Stop Time Status Admin Acetaminophen 650 MG Q6P PRN 03/12 0100 DCD 03/14 PO 2154 Acetaminophen 1,000 MG Q6P PRN 03/12 0100 DCD IV Amlodipine Besylate 5 MG DAILY 03/12 1000 DCD 03/16 PO 0952 Aspirin Buffered 81 MG DAILY 03/12 1000 DCD 03/16 PO 0951 Atorvastatin Calcium 20 MG 1700 03/12 1700 DCD 03/16 PO 1646 Cholecalciferol 1,000 IU DAILY 03/12 1000 DCD 03/16 PO 0951 Escitalopram Oxalate 5 MG DAILY 03/12 1000 DCD 03/16 PO 0951 Gabapentin 100 MG AT BEDTIME 03/12 2200 DC 03/15 PO 2243 Gemfibrozil 600 MG BID 03/12 1000 DCD 03/16 PO 0951 Heparin Sodium 5,000 UNIT Q8 03/13 1400 DCD 03/16 (Porcine) SC 1548 Insulin Aspart 0 TIDAC 03/12 0800 DCD 03/13 SC 1505 Lorazepam 0.25 MG QPM 03/12 2200 DCD 03/15 PO 03/19 2159 2241 Morphine Sulfate 1 MG Q6-PRN PRN 03/12 0100 DCD IV Nystatin 1 DEB BID PRN 03/15 0915 DCD 03/15 TOP 1824 Polyethylene Glycol 17 GM DAILY 03/12 1000 DCD 03/12 PO 1220 Senna/Docusate Sodium 1 TAB BID PRN 03/12 0115 DCD PO Sodium Chloride 1,000 ML Q13H 03/15 1030 DCD 03/16 IV 1245 Last 24 Hrs of Lab/Winston Results Last 24 Hrs of Labs/Mics: Laboratory Tests 03/16/17 0640: Anion Gap 10, Estimated GFR 60, BUN/Creatinine Ratio 24.4, CBC w Diff NO MAN DIFF REQ, RBC 3.33 L, MCV 92.1, MCH 30.8, RDW 14.3, MPV 8.5, Gran % 64.9, Lymphocytes % 21.6, Monocytes % 9.4 H, Eosinophils % 3.6, Basophils % 0.5, Absolute Granulocytes 5.3, Absolute Lymphocytes 1.8, Absolute Monocytes 0.8 H, Absolute Eosinophils 0.3, Absolute Basophils 0, PUBS MCHC 33.4 Assessment/Plan Assessment: his is an 86 yo caucasion F presenting to the ED after 2 unwitnessed falls. She has a PMH of HTN, HLD, DM and osteoporosis. She usually walks with a walker and on admission day she attempted to walk across her house to get her mail without her walker, she felt her R knee give out, and fell; similar incident for second fall. She did not hit her head, or suffer any significant injury, she denies LOC , chest pain, SOB, palpitations, lightheadedness, or diziness. ---- During admission pt was evaluated for the following problems: Mechanical fall: Pt had PT/OT consult, and pain management in Gen Med floor. PT suggested STR for patient. * Xray spine- Osteopenia with multiple mild compression deformities in the lower thoracic spine, unchanged from 03/10/2017 and new from 2005 and 2015. Multilevel degenerative disc disease and scoliosis. * Orthostatic vitals WNL * Adequate analgesia Tylenol 650 by mouth every 6 for mild pain Tylenol 1000 IV every 6 for moderate pain and morphine 1 MG every 6 for severe pain * B12 539 and CPK 79 WNR * PT- will require STR placement Decreased Urinary Frequency: Initially pt came in with increased urinary frequency and now has decreased urination the last two days of admission. Only change was addition of gabapentin which we suspect could be cause of her decreased urination. We d.c medication. Urology evaluated patient and suggested straight cath protocol and follow up in office in one to two weeks. * Would check pvr q shift with bladder scan. If > 350 cc then would str cath * If patient goes to rehab intermittent cath as above can be done there * f/u in our office 1-2 weeks after discharge with Dr Vila UTI: Patient was symptomatic, although her WBC count was not impressive she was started on Bactrim by her PCP. Patient continues to have urinary urgency every 15 minutes or so. We determined no retention via bladder scan. Pt finished 3 days of IV ceftriaxone. * Follow-up urine culture NGTD * Follow up urology outpatient Thyroid nodule Cervical spine CT shows thyroid nodule can be worked up as an outpatient. * Outpatient follow-up History of htn - c/w home medications (lisinopril 10mg daily, amlodipine 5 mg daily) Diabetes mellitus * Accu-Cheks * Insulin sliding Scale Anxiety * Condition Ativan 0.25 when necessary Hyperlipidemia * Continue Lipitor 20mg Hyperkalemia: Pt had K max of 5.4 x1 and was given kayexalate. K subsequently normalized Problem List: 1. UTI (urinary tract infection) Pain Ratin Pain Location: none Pain Goal: Pain 4 or less Pain Plan: tynelol Tomorrow's Labs & Rationales: none KIARRA JEWELL MD 03/16/17 1614: Attending MD Review Statement Attending Statement Attending MD Statement: examined this patient, discuss w/resident/PA/FERMENTATION ENGINEER, agreed w/resident/PA/FERMENTATION ENGINEER, discussed with family, reviewed EMR data (avail), discussed with nursing, discussed with case mgmt, amended to note Attending Assessment/Plan: Patient seen and examined, offers no complaints. She had completed a total of 3 day course of antibiotics for an unconjugated UTI. She had developed urinary retention over the weekend. Urology was consulted and they recommended straight cath protocol. Patient otherwise has a bed availability have today and will be discharged to rehabilitation with straight cath protocol. Patient will be continued on her medications. She was given gabapentin in the hospital which will be discontinued as there is no further indication for gabapentin. She will follow up with her primary care doctor as an outpatient. She will also follow with urology as an outpatient.
[2017-03-16 09:44] LABS: ABSOLUTE BASOPHIL COUNT 0 /CUMM (0.0-0.2); ABSOLUTE EOSINOPHIL COUNT 0.3 /CUMM (0.0-0.7); ABSOLUTE GRANULOCYTE CT 5.3 /CUMM (1.4-6.5); ABSOLUTE LYMPH COUNT 1.8 /CUMM (1.2-3.4); ABSOLUTE MONOCYTE COUNT 0.8 /CUMM (0.10-0.60); BASOPHIL % 0.5 % (0.0-2.0); EOSINOPHIL % 3.6 % (0-5); GRANULOCYTE % 64.9 % (42.2-75.2); HEMATOCRIT 30.7 % (37-47); MEAN CORPUSCULAR HGB 30.8 PG (27.0-31.0); MEAN CORPUSCULAR HGB CONC 33.4 G/DL (33.0-37.0); MEAN CORPUSCULAR VOLUME 92.1 FL (81.0-99.0); MEAN PLATELET VOLUME 8.5 FL (7.4-10.4); PLATELET COUNT 242 /CUMM (130-400); RBC DISTRIBUTION WIDTH 14.3 % (11.5-14.5); RED BLOOD CELL CT 3.33 /CUMM (4.20-5.40); WHITE BLOOD CELL COUNT 8.2 /CUMM (4.8-10.8)
--- NOTE | 2017-03-16 14:31 | Cons- Urology ---
General Information and HPI Consulting Request Date of Consult: 03/16/17 Requested By: KIARRA JEWELL MD Reason for Consult: urinary retention Source of Information: patient, family, old records Exam Limitations: no limitations History of Present Illness: This patient was admitted after a mechanical fall. She was having urinary frequency and difficulty initiating her urinary stream. Eventually she was unable to void and pvr by bladder scan was 800 cc. She continues to have difficulty voiding. She has been diabetic for over 20 years. She was seen in our office by Dr Vila in 08/2016. Office cystoscopy showed no obstruction. Bladder function was not normal but she was able to empty her bladder well with a pvr of 20 cc. At home, prior to being admitted she was voiding every 15 minutes and this may have been due to a large pvr Allergies/Medications Allergies: Coded Allergies: No Known Allergies (06/29/16) Home Med List: Acetaminophen With Codeine (Acetaminophen-Cod #3 Tablet) 300 MG-30 MG TABLET 1 TAB PO AD PRN PAIN (Reported) Amlodipine Besylate/Benazepril (Amlodipine-Benazepril 5-10 MG) 1 EACH CAPSULE 1 CAP PO DAILY BP (Reported) Aspirin (Ecotrin*) 81 MG TABLET.DR 1 TAB PO DAILY HEART HEALTH (Reported) Cholecalciferol (Vitamin D3) (Vitamin D) 1,000 UNIT TABLET 3 CAP PO DAILY SUPPLEMENT (Reported) Escitalopram Oxalate (Lexapro) 5 MG TABLET 1 TAB PO DAILY MENTAL HEALTH ( Reported) Gemfibrozil 600 MG TABLET 1 TAB PO BID CHOLESTEROL (Reported) Ibuprofen (Advil) 200 MG TABLET 2 TAB PO PRN PAIN (Reported) Lorazepam 0.5 MG TABLET 0.5 TAB PO QPM SLEEP (Reported) Metformin HCl 1,000 MG TABLET 1 TAB PO DAILY DIABETES (Reported) Rosuvastatin Calcium (Crestor) 20 MG TABLET 1 TAB PO DAILY CHOLESTEROL ( Reported) Sennosides/Docusate Sodium (Senna Plus Tablet) 8.6 MG-50 MG TABLET 1 TAB PO DAILY PRN CONSTIPATION Past History Medical History Neurological: NONE EENT: NONE Cardiovascular: hypertension, hyperlipidemia, HIGH CHOLESTEROL Respiratory: NONE Gastrointestinal: NONE Hepatic: NONE Renal: NONE Musculoskeletal: OSTEOPOROSIS HIP FX Psychiatric: anxiety, depression Endocrine: NIDDM Blood Disorders: NONE Cancer(s): NONE 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 Home Who Do You Live With? self Services at Home: None Primary Language: Argentine Smoking Status: Never Smoked ETOH Use: denies use Illicit Drug Use: denies illicit drug use Living Will? states that her children know her wishes Exam & Diagnostic Data Vital Signs and I&O Vital Signs Date Time Temp Pulse Resp B/P B/P Pulse O2 O2 Flow FiO2 Mean Ox Delivery Rate 03/16 1235 Room Air 03/16 0952 112 180/100 03/16 0644 97.9 88 20 144/68 95 Room Air 03/15 2339 100.0 102 16 130/60 94 03/15 1448 98.8 95 16 125/57 93 Room Air Intake & Output 03/16 1600 03/16 0800 03/16 0000 03/15 1600 03/15 0800 03/15 0000 Intake Total 600 1300 825 120 490 Output Total 650 800 350 Balance 600 650 25 -230 490 Intake, IV 600 900 225 10 Intake, Oral 400 600 120 480 Number 3 1 4 3 3 Bowel Movements Output, Urine 650 800 350 Back: no CVA tenderness Abd: soft and non tender Laboratory Tests 03/16 640 Chemistry Sodium (137 - 145 mmol/L) 142 Potassium (3.5 - 5.1 mmol/L) 4.7 Chloride (98 - 107 mmol/L) 114 H Carbon Dioxide (22 - 30 mmol/L) 18 L Anion Gap (5 - 16) 10 BUN (7 - 17 mg/dL) 22 H Creatinine (0.5 - 1.0 mg/dL) 0.9 Estimated GFR (>60 ml/min) 60 BUN/Creatinine Ratio (7 - 25 %) 24.4 Hematology CBC w Diff NO MAN DIFF REQ WBC (4.8 - 10.8 /CUMM) 8.2 RBC (4.20 - 5.40 /CUMM) 3.33 L Hgb (12.0 - 16.0 G/DL) 10.3 L Hct (37 - 47 %) 30.7 L MCV (81.0 - 99.0 FL) 92.1 MCH (27.0 - 31.0 PG) 30.8 RDW (11.5 - 14.5 %) 14.3 Plt Count (130 - 400 /CUMM) 242 MPV (7.4 - 10.4 FL) 8.5 Gran % (42.2 - 75.2 %) 64.9 Lymphocytes % (20.5 - 51.1 %) 21.6 Monocytes % (1.7 - 9.3 %) 9.4 H Eosinophils % (0 - 5 %) 3.6 Basophils % (0.0 - 2.0 %) 0.5 Absolute Granulocytes (1.4 - 6.5 /CUMM) 5.3 Absolute Lymphocytes (1.2 - 3.4 /CUMM) 1.8 Absolute Monocytes (0.10 - 0.60 /CUMM) 0.8 H Absolute Eosinophils (0.0 - 0.7 /CUMM) 0.3 Absolute Basophils (0.0 - 0.2 /CUMM) 0 PUBS MCHC (33.0 - 37.0 G/DL) 33.4 Assessment/Plan Assessment/Plan Imp: 1. Urinary retention due to poor bladder tone likely from DM, and decreased ambultation 2. ? UTI vs contamination of urine sample Plan: 1. Would check pvr q shift with bladder scan. If > 350 cc then would str cath 2. If patient goes to rehab intermittent cath as above can be done there 3. Reasonable to complete course of antibiotic 4. f/u in our office 1-2 weeks after discharge with Dr Vila Consult Acknowledgment - Thank you for your consult request.
[2017-03-16 15:31] VITALS: BP 130/80
--- NOTE | 2017-03-16 15:59 | NUR ---
ALERT AND ORIENTED X 3. ON ROOM AIR. DENIES SHORTNESS OF BREATH VITAL SIGNS STABLE. DENIES CHEST PAIN. + PULSES. NO EDEMA NOTED DENIES NUMBNESS/TINGLING. ABRASIONS NOTED TO ELBOWS AND R KNEE. DRY DSG TO R KNEE IS C/D/I. BROWN GELATINOUS STOOL NOTED. UNABLE TO URINATE. PATIENT WAS STRAIGHT CATHED PER PROTOCOL NO DISCOMFORT/DISTRESS AT THIS TIME. SAFETY MAINTAINED
[2017-03-16 16:35] VITALS: BP 130/80
--- NOTE | 2017-03-16 17:05 | NUR ---
NURSING NOTE: PATIENT LEFT FLOOR VIA W/C WITH [facility] SERVICE FOR DISCHARGE TO [facility]. PATIENT A/OX3 AT BASELINE, NO ACUTE DISRTRESS NOTED AT THIS TIME. IV DISCONTINUED. PATIENT DRESSED AND ALL BELONGINGS LEFT WITH PATIENT AND FAMILY MEMBERS. ALL DISCHARGE INFORMATION GIVEN TO [facility] ATTENDENT FOR DISCHARGE.
== END 2017-03-16 16:57 | DRG 690 ==
LOC: DELPENDDIS → ERH 18:01 → ERHI 23:23 → 2NB 23:23 → ENRESERV 03-12 00:06 → 2NB 03-12 01:20 → ENPENDDIS 03-14 12:17 → 2NB 03-15 07:14 → ENPENDDIS 03-16 16:50 → 2NB 03-16 16:57
PROVIDERS: Internal Medicine; Physician Assistant; ADMIT Internal Medicine
DX: N39.0 Urinary tract infection, site not specified (principal); E11.40 Type 2 diabetes mellitus with diabetic neuropathy, unspecified; E87.5 Hyperkalemia; I10 Essential (primary) hypertension; M81.0 Age-related osteoporosis without current pathological fracture; E78.5 Hyperlipidemia, unspecified; F41.9 Anxiety disorder, unspecified; F32.9 Major depressive disorder, single episode, unspecified; Z79.84 Long term (current) use of oral hypoglycemic drugs; M47.892 Other spondylosis, cervical region; E04.1 Nontoxic single thyroid nodule; R33.9 Retention of urine, unspecified; W19.XXXA Unspecified fall, initial encounter; Y92.009 Unspecified place in unspecified non-institutional (private) residence as the place of occurrence of the external cause
CPT/HCPCS: 2NBP; ERO; 36415; 72070; 81001; 82436; 87086; 93005; 93010; 97110-GO; 97116-GO; 97161-GP; 97530-GO; J0131; J0696; J1644; J1650